=== PATIENT | male | born 1940 | race Caucasian/White ===

== ENCOUNTER → 2019-09-26 10:28 | Outpatient (CLI) | payer MEDICARE, SELFPAY ==
--- NOTE | 2019-09-26 10:33 | ECHOD_ITS ---
Reason For Study: Aortic stenosis Procedure This was a 2D Doppler, Color Flow transthoracic echocardiogram. Exam performed in department. Left Ventricle Normal LV size. The estimated ejection fraction is 70 %. Stage 2 diastolic dysfunction. No regional wall motion abnormalities noted. Right Ventricle Normal RV size. Normal systolic function. Atria The left atrium is mildly enlarged. Normal right atrium. No doppler evidence for ASD. Mitral Valve There is no mitral valve stenosis. Trivial mitral valve insufficiency. Tricuspid Valve There is no tricuspid stenosis. Mild tricuspid valve insufficiency. Pulmonary artery systolic pressure is 35 mmHg. Aortic Valve Trisinus/trileaflet aortic valve. Moderate diffuse aortic valve thickening. Moderate aortic stenosis. Mild (1+) aortic valve insufficiency. Pulmonic Valve There is no pulmonic valvular stenosis. Trivial pulmonic valve insufficiency. Great Vessels Normal aortic root. Pericardium/Pleural No pericardial effusion. MMode/2D Measurements & Calculations LVIDd: 3.8 cm IVSd: 1.3 cm LVOT diam: 2.1 cm LVIDs: 1.9 cm LVPWd: 1.2 cm LVOT area: 3.4 cm2 RVDd: 2.9 cm FS: 48.5 % Ao root diam: 3.9 cm LAV(MOD-bp): 60.8 ml LA A4 area: 21.8 cm2 LAV(MOD-bp) Indexed: 32.2 ml/m2 LAV(MOD-sp2): 52.9 ml LAV(MOD-sp4): 68.2 ml RA A4 area: 14.8 cm2 Doppler Measurements & Calculations MV E max rd: 69.1 cm/sec Lat Peak E' Rd: 5.8 cm/sec Med Peak E' Rd: 3.9 cm/sec MV A max rd: 94.8 cm/sec E/E' lat: 11.9 E/E' med: 17.5 MV E/A: 0.73 Ao V2 max: 376.8 cm/sec AI max rd: 344.8 cm/sec LV V1 max: 138.7 cm/sec Ao max P.8 mmHg AI max P.6 mmHg LV V1 max P.7 mmHg Ao V2 mean: 256.5 cm/sec AI dec slope: 148.9 cm/sec2 LV V1 mean P.1 mmHg Ao mean P.3 mmHg AI P1/2t: 678.5 msec LV V1 mean: 95.1 cm/sec Ao V2 VTI: 78.9 cm LV V1 VTI: 26.5 cm UMA(I,D): 1.2 cm2 UMA(V,D): 1.3 cm2 SV(LVOT): 90.8 ml PA V2 max: 102.9 cm/sec TR max rd: 292.5 cm/sec TR max P.3 mmHg Interpretation Summary The estimated ejection fraction is 70 %. Stage 2 diastolic dysfunction. Trivial mitral valve insufficiency. Mild tricuspid valve insufficiency. Pulmonary artery systolic pressure is 35 mmHg. Mild (1+) aortic valve insufficiency. Moderate aortic stenosis. Ordering Physician: Caden Avery Referring Physician: Caden Avery Performed By: Elizabeth Dacosta RDCS
== END ==
PROVIDERS: PCP Family Medicine; Referring Provider Family Medicine; Visit Provider Family Medicine
DX: I35.0 Nonrheumatic aortic (valve) stenosis (principal)
CPT/HCPCS: 93306

== ENCOUNTER → 2020-08-03 09:55 | Outpatient (CLI) | payer MEDICARE, SELFPAY ==
[2020-08-03 12:40] LABS: Hemoglobin A1c 6.2 % (3.8-5.6)
[2020-08-03 12:52] LABS: ALB/GLOB Ratio 0.8 RATIO (0.9-2.4); AST(SGOT) 17 U/L (15-37); Alanine Aminotransfer ALT/SGPT 25 U/L (16-61); Albumin, Serum 3.2 g/dL (3.2-5.0); Alkaline Phosphatase 88 U/L (45-117); Anion Gap 9 (5-15); BUN 23 mg/dL (7-18); BUN/Creat Ratio 16.4 RATIO (10-20); Chloride 104 mmol/L (98-107); Cholesterol 144 mg/dL (200); EST Glomerular Filtration Rate 52 mL/min (>60); Est Glom Filt Rate - Afr Amer 63 mL/min (>60); Globulin 4.1 g/dL (2.2-4.2); Glucose 158 mg/dL (74-106); High Density Lipoprotein 42 mg/dL; Potassium 3.4 mmol/L (3.5-5.1); Protein, Total 7.3 g/dL (6.4-8.2); Sodium Level 137 mmol/L (136-145); Triglycerides 153 mg/dL; Very Low Density Lipoprotein 31 mg/dL (5-40)
== END ==
PROVIDERS: PCP Family Medicine; Referring Provider Family Medicine; Visit Provider Family Medicine
DX: I10 Essential (primary) hypertension (principal); E11.65 Type 2 diabetes mellitus with hyperglycemia; E78.5 Hyperlipidemia, unspecified
CPT/HCPCS: 36415; 80053; 80061; 83036

== ENCOUNTER → 2021-07-18 10:27 | Outpatient (CLI) | payer MEDICARE, SELFPAY ==
[2021-07-18 12:41] LABS: ALB/GLOB Ratio 0.9 RATIO (0.9-2.4); AST(SGOT) 16 U/L (15-37); Alanine Aminotransfer ALT/SGPT 32 U/L (16-61); Albumin, Serum 3.5 g/dL (3.2-5.0); Alkaline Phosphatase 93 U/L (45-117); Anion Gap 9 (5-15); BUN 37 mg/dL (7-18); BUN/Creat Ratio 24.8 RATIO (10-20); Calcium,Total 9.9 mg/dL (8.5-10.1); Chloride 108 mmol/L (98-107); Cholesterol 128 mg/dL (200); Creatinine, Serum 1.49 mg/dL (0.70-1.30); EST Glomerular Filtration Rate 48 mL/min (>60); Est Glom Filt Rate - Afr Amer 58 mL/min (>60); Globulin 4.1 g/dL (2.2-4.2); Glucose 119 mg/dL (74-106); High Density Lipoprotein 43 mg/dL; Potassium 3.4 mmol/L (3.5-5.1); Protein, Total 7.6 g/dL (6.4-8.2); Sodium Level 142 mmol/L (136-145); Triglycerides 136 mg/dL; Very Low Density Lipoprotein 27 mg/dL (5-40)
== END ==
PROVIDERS: PCP Family Medicine; Referring Provider Family Medicine; Visit Provider Family Medicine
DX: E78.5 Hyperlipidemia, unspecified (principal); E11.65 Type 2 diabetes mellitus with hyperglycemia; I10 Essential (primary) hypertension
CPT/HCPCS: 36415; 80053; 80061; 83036

== ENCOUNTER → 2023-01-08 | Outpatient (REF) | payer MEDICARE, SELFPAY ==
[2023-01-09 06:54] LABS: Bacteria 0 SEEN /hpf (None Seen); Mucous, Urine 0 SEEN /hpf (<or=2+); Red Blood Cells-Urine 0 SEEN /hpf (0-5); Squamous Epithelial Cells - UA 0 SEEN /hpf (0-5); White Blood Cells 0 SEEN /hpf (0-5)
[2023-01-09 07:24] LABS: Color, Urine Yellow (Yellow); Glucose, Dipstick Normal (Normal); Ketone-Dipstick Negative (Negative); Leukocyte Esterase-Dipstick Negative /ul (Negative); Nitrite-Dipstick Negative (Negative); Occult Blood-Urine Negative /ul (Negative); Protein-Dipstick 15 mg/dl (Negative); Urine Bilirubin Dipstick Negative (Negative); Urine Clarity Clear (Clear); Urine Urobilinogen 1 mg/dl (Normal)
[2023-01-09 08:11] LABS: Calcium Oxalate Crystals Ur 1+ /hpf (<or=2+)
== END ==
LOC: OLS.SW 20:30
PROVIDERS: PCP Family Medicine; Visit Provider Family Medicine
DX: N18.4 Chronic kidney disease, stage 4 (severe) (principal); N39.0 Urinary tract infection, site not specified
CPT/HCPCS: 81001; 87086

== ENCOUNTER → 2023-01-17 05:00 | Outpatient (REF) | payer MEDICARE, SELFPAY ==
[2023-01-17 10:00] LABS: Anion Gap 6 (5-15); BUN 40 mg/dL (7-18); BUN/Creat Ratio 21.6 RATIO (10-20); Chloride 102 mmol/L (98-107); Creatinine, Serum 1.85 mg/dL (0.70-1.30); EST Glomerular Filtration Rate 37 mL/min (>60); Est Glom Filt Rate - Afr Amer 45 mL/min (>60); Glucose 134 mg/dL (74-106); Sodium Level 140 mmol/L (136-145)
== END ==
LOC: OLS.SW 05:00
PROVIDERS: PCP Family Medicine; Visit Provider Family Medicine
DX: I13.0 Hypertensive heart and chronic kidney disease with heart failure and stage 1 through stage 4 chronic kidney disease, or unspecified chronic kidney disease (principal); N18.4 Chronic kidney disease, stage 4 (severe)
CPT/HCPCS: 36415; 80048

== ENCOUNTER → 2023-01-24 | Outpatient (REF) | payer MEDICARE, SELFPAY ==
[2023-01-24 09:14] LABS: Anion Gap 4 (5-15); BUN 42 mg/dL (7-18); BUN/Creat Ratio 19.1 RATIO (10-20); Calcium,Total 8.9 mg/dL (8.5-10.1); Chloride 104 mmol/L (98-107); EST Glomerular Filtration Rate 31 mL/min (>60); Est Glom Filt Rate - Afr Amer 37 mL/min (>60); Glucose 151 mg/dL (74-106); Potassium 3.9 mmol/L (3.5-5.1); Sodium Level 142 mmol/L (136-145)
== END ==
LOC: OLS.SW 05:00
PROVIDERS: PCP Family Medicine; Visit Provider Family Medicine
DX: N18.4 Chronic kidney disease, stage 4 (severe) (principal)
CPT/HCPCS: 36415; 80048

== ENCOUNTER → 2023-02-01 | Outpatient (REF) | payer MEDICARE, SELFPAY ==
[2023-02-01 10:10] LABS: Anion Gap 2 (5-15); BUN 36 mg/dL (7-18); BUN/Creat Ratio 17.2 RATIO (10-20); Calcium,Total 8.5 mg/dL (8.5-10.1); Chloride 106 mmol/L (98-107); Creatinine, Serum 2.09 mg/dL (0.70-1.30); EST Glomerular Filtration Rate 33 mL/min (>60); Est Glom Filt Rate - Afr Amer 39 mL/min (>60); Glucose 150 mg/dL (74-106); Potassium 3.8 mmol/L (3.5-5.1); Sodium Level 142 mmol/L (136-145)
== END ==
LOC: OLS.SW 05:00
PROVIDERS: PCP Family Medicine; Visit Provider Family Medicine
DX: N18.4 Chronic kidney disease, stage 4 (severe) (principal)
CPT/HCPCS: 36415; 80048

== ENCOUNTER → 2023-02-08 | Outpatient (REF) | payer MEDICARE, SELFPAY ==
[2023-02-08 10:20] LABS: Anion Gap 5 (5-15); BUN 41 mg/dL (7-18); BUN/Creat Ratio 17.3 RATIO (10-20); Calcium,Total 8.8 mg/dL (8.5-10.1); Chloride 101 mmol/L (98-107); Creatinine, Serum 2.37 mg/dL (0.70-1.30); EST Glomerular Filtration Rate 28 mL/min (>60); Est Glom Filt Rate - Afr Amer 34 mL/min (>60); Glucose 165 mg/dL (74-106); Potassium 4.2 mmol/L (3.5-5.1); Sodium Level 139 mmol/L (136-145)
== END ==
LOC: OLS.SW 05:00
PROVIDERS: PCP Family Medicine; Visit Provider Family Medicine
DX: N18.4 Chronic kidney disease, stage 4 (severe) (principal); D63.1 Anemia in chronic kidney disease; J96.01 Acute respiratory failure with hypoxia
CPT/HCPCS: 36415; 80048

== ENCOUNTER → 2023-02-15 | Outpatient (REF) | payer MEDICARE, SELFPAY ==
[2023-02-15 10:09] LABS: Anion Gap 5 (5-15); BUN 46 mg/dL (7-18); BUN/Creat Ratio 22.1 RATIO (10-20); Calcium,Total 8.9 mg/dL (8.5-10.1); Chloride 105 mmol/L (98-107); Creatinine, Serum 2.08 mg/dL (0.70-1.30); EST Glomerular Filtration Rate 33 mL/min (>60); Est Glom Filt Rate - Afr Amer 40 mL/min (>60); Glucose 168 mg/dL (74-106); Potassium 3.9 mmol/L (3.5-5.1); Sodium Level 141 mmol/L (136-145)
== END ==
LOC: OLS.SW 05:00
PROVIDERS: PCP Family Medicine; Visit Provider Family Medicine
DX: I50.9 Heart failure, unspecified (principal); N18.9 Chronic kidney disease, unspecified
CPT/HCPCS: 36415; 80048

== ENCOUNTER → 2023-02-22 | Outpatient (REF) | payer MEDICARE, SELFPAY ==
[2023-02-22 10:12] LABS: Anion Gap 6 (5-15); BUN 43 mg/dL (7-18); BUN/Creat Ratio 19.7 RATIO (10-20); Chloride 102 mmol/L (98-107); Creatinine, Serum 2.18 mg/dL (0.70-1.30); EST Glomerular Filtration Rate 31 mL/min (>60); Est Glom Filt Rate - Afr Amer 38 mL/min (>60); Glucose 172 mg/dL (74-106); Sodium Level 140 mmol/L (136-145)
== END ==
LOC: OLS.SW 05:00
PROVIDERS: PCP Family Medicine; Visit Provider Family Medicine
DX: R53.83 Other fatigue (principal)
CPT/HCPCS: 36415; 80048

== ENCOUNTER → 2023-02-23 | Outpatient (CLI) | payer MEDICARE, SELFPAY ==
--- NOTE | 2023-02-23 15:53 | VDUE_ITS ---
Reason For Study: Pre op Right Lower Arm Left Arm Lateral Radial vein proximal diameter 1.1 x Lateral Brachial vein diameter 3.9 x 3.7 mm. 1.1 mm. Medial Brachial vein diameter 3.9 x 4.1 mm. Medial Radial vein proximal diameter 1.5 x Brachial artery measures 4.6 x 4.2 mm. 1.9 mm. Brachial artery waveforms are Triphasic. Proximal Radial artery measures 1.9 x 1.5 Welding Operator Vein is present. mm. Welding Operator Vein measures 2.0 mm. Proxiaml Radial artery waveform is Cephalic Vein at proximal upper arm measures Triphasic. 2.8 x 2.7 mm. Lateral Radial vein distal diameter 0.7 x Cephalic vein at proximal upper arm depth 0.7 mm. measures 3.0 mm. Medial Radial vein distal diameter 0.8 x 0.9 Cephalic Vein at mid upper arm measures 2.7 mm. x 2.8 mm. Distal Radial artery measures 2.0 x 1.9 mm. Cephalic vein at mid upper arm depth Lateral Ulnar vein proximal diameter 3.0 x measures 2.2 mm. 2.9 mm. Cephalic Vein distal upper arm measures 2.3 Medial Ulnar vein proximal diameter 4.8 x x 2.5 mm. 4.5 mm. Cephalic vein at distal upper arm depth Proximal Ulnar artery measures 3.7 x 3.9 mm. measures 2.8 mm. Proximal Ulnar artery waveform is Triphasic. Cephalic Vein proximal forearm measures 1.6 Lateral Ulnar vein distal diameter 1.5 x 1.6 x 1.8 mm. mm. Cephalic Vein at mid forearm measures 1.9 x Medial Ulnar vein distal diameter 0.9 x 0.8 2.0 mm. mm. Cephalic Vein at distal forearm measures 2.2 Distal Ulnar artery measures 2.6 x 3.0 mm. x 2.3 mm. Right Arm Proximal Basilic vein measures 3.1 x 3.2 mm. Lateral Brachial vein diameter 3.5 x 3.3 mm. Proximal Basilic vein depth measures 7.7 mm. Medial Brachial vein diameter 7.1 x 6.9 mm. Mid Basilic vein measures 3.4 x 3.4 mm. Brachial artery measures 5.7 x 6.0 mm. Mid Basilic vein depth measures 5.8 mm. Brachial artery waveforms are Triphasic. Distal Basilic vein measures 2.9 x 3.0 mm. Welding Operator Vein is present. Distal Basilic vein depth measures 4.1 mm. Welding Operator Vein measures 2.6 mm. Left Lower Arm Cephalic Vein at proximal upper arm measures Lateral Radial vein proximal diameter 1.1 x 4.0 x 4.2 mm. 1.0 mm. Cephalic vein at proximal upper arm depth Medial Radial vein proximal diameter 0.9 x measures 3.6 mm. 0.9 mm. Cephalic Vein at mid upper arm measures 3.9 Proximal Radial artery measures 2.2 x 2.2 x 4.0 mm. mm. Cephalic vein at mid upper arm depth Proxiaml Radial artery waveform is measures 1.3 mm. Triphasic. Cephalic Vein distal upper arm measures 2.6 Lateral Radial vein distal diameter 0.6 x x 2.8 mm. 0.7 mm. Cephalic vein at distal upper arm depth Medial Radial vein distal diameter 0.8 x 0.7 measures 1.6 mm. mm. Cephalic Vein proximal forearm measures 1.8 Distal Radial artery measures 2.2 x 2.6 mm. x 2.1 mm. Lateral Ulnar vein proximal diameter 2.3 x Cephalic Vein at mid forearm measures 2.0 x 2.2 mm. 2.1 mm. Medial Ulnar vein proximal diameter 2.8 x Cephalic Vein at distal forearm measures 1.9 2.9 mm. x 1.8 mm. Proximal Ulnar artery measures 3.6 x 3.9 mm. Proximal Basilic vein measures 4.2 x 4.1 mm. Proximal Ulnar artery waveform is Triphasic. Proximal Basilic vein depth measures 4.6 mm. Lateral Ulnar vein distal diameter 1.0 x 0.9 Mid Basilic vein measures 4.1 x 4.1 mm. mm. Mid Basilic vein depth measures 3.9 mm. Medial Ulnar vein distal diameter 1.1 x 1.1 Distal Basilic vein measures 4.0 x 4.1 mm. mm. Distal Basilic vein depth measures 1.8 mm. Distal Ulnar artery measures 1.9 x 1.9 mm. VL/Dialysis Vein Map PRE-OP BILAT Interpretation Summary Right upper extremity arterial system patent with normal waveforms and measurem ents above. Left upper extremity arterial system patent with normal waveforms and measureme nts above. Right upper extremity patent with measurements above Left upper extremity patent with measurements above Ordering Physician: Noble Zepeda MD Referring Physician: Caden Avery Performed By: Afia Tinsley Katty ???
== END | disposition home or self-care (01) ==
PROVIDERS: PCP Family Medicine; Referring Provider Surgery Trauma Surgery; Visit Provider Surgery Trauma Surgery
DX: Z01.810 Encounter for preprocedural cardiovascular examination (principal); Z99.2 Dependence on renal dialysis
CPT/HCPCS: 93985

== ENCOUNTER → 2023-03-01 | Outpatient (REF) | payer MEDICARE, SELFPAY ==
[2023-03-01 11:01] LABS: Anion Gap 5 (5-15); BUN 43 mg/dL (7-18); BUN/Creat Ratio 21.9 RATIO (10-20); Calcium,Total 8.8 mg/dL (8.5-10.1); Chloride 105 mmol/L (98-107); Creatinine, Serum 1.96 mg/dL (0.70-1.30); EST Glomerular Filtration Rate 35 mL/min (>60); Est Glom Filt Rate - Afr Amer 42 mL/min (>60); Glucose 150 mg/dL (74-106); Potassium 3.8 mmol/L (3.5-5.1); Sodium Level 142 mmol/L (136-145)
== END ==
LOC: OLS.SW 07:15
PROVIDERS: PCP Family Medicine; Visit Provider Family Medicine
DX: I10 Essential (primary) hypertension (principal)
CPT/HCPCS: 36415; 80048

== ENCOUNTER → 2023-03-08 | Outpatient (REF) | payer MEDICARE, SELFPAY ==
[2023-03-08 09:53] LABS: Anion Gap 7 (5-15); BUN 47 mg/dL (7-18); Calcium,Total 8.9 mg/dL (8.5-10.1); Chloride 101 mmol/L (98-107); Creatinine, Serum 2.14 mg/dL (0.70-1.30); EST Glomerular Filtration Rate 32 mL/min (>60); Est Glom Filt Rate - Afr Amer 38 mL/min (>60); Glucose 164 mg/dL (74-106); Potassium 3.7 mmol/L (3.5-5.1); Sodium Level 139 mmol/L (136-145)
== END ==
LOC: OLS.SW 04:00
PROVIDERS: PCP Family Medicine; Referring Provider Family Medicine; Visit Provider Family Medicine
DX: N17.9 Acute kidney failure, unspecified (principal); N18.9 Chronic kidney disease, unspecified
CPT/HCPCS: 36415; 80048

== ENCOUNTER → 2023-03-15 | Outpatient (REF) | payer MEDICARE, MEDICAID, SELFPAY ==
[2023-03-15 09:27] LABS: Anion Gap 5 (5-15); BUN 46 mg/dL (7-18); BUN/Creat Ratio 16.6 RATIO (10-20); Calcium,Total 8.9 mg/dL (8.5-10.1); Chloride 100 mmol/L (98-107); Creatinine, Serum 2.77 mg/dL (0.70-1.30); EST Glomerular Filtration Rate 24 mL/min (>60); Est Glom Filt Rate - Afr Amer 28 mL/min (>60); Glucose 178 mg/dL (74-106); Potassium 3.9 mmol/L (3.5-5.1); Sodium Level 138 mmol/L (136-145)
== END ==
LOC: OLS.SW 05:00
PROVIDERS: PCP Family Medicine; Visit Provider Family Medicine
DX: D64.9 Anemia, unspecified (principal); I10 Essential (primary) hypertension
CPT/HCPCS: 36415; 80048

== ENCOUNTER → 2023-03-19 | Outpatient (REF) | payer MEDICARE, SELFPAY ==
[2023-03-19 11:38] LABS: Hemoglobin A1c 6.5 % (3.8-5.6)
== END ==
LOC: OLS.SW 05:00
PROVIDERS: PCP Family Medicine; Visit Provider Internal Medicine
DX: E11.9 Type 2 diabetes mellitus without complications (principal)
CPT/HCPCS: 36415; 83036

== ENCOUNTER → 2023-03-22 | Outpatient (REF) | payer MEDICARE, SELFPAY ==
[2023-03-22 09:29] LABS: Anion Gap 7 (5-15); BUN 37 mg/dL (7-18); BUN/Creat Ratio 17.9 RATIO (10-20); Calcium,Total 9.1 mg/dL (8.5-10.1); Chloride 102 mmol/L (98-107); Creatinine, Serum 2.07 mg/dL (0.70-1.30); EST Glomerular Filtration Rate 33 mL/min (>60); Est Glom Filt Rate - Afr Amer 40 mL/min (>60); Glucose 196 mg/dL (74-106); Potassium 3.8 mmol/L (3.5-5.1); Sodium Level 140 mmol/L (136-145)
== END ==
LOC: OLS.SW 05:00
PROVIDERS: PCP Family Medicine; Visit Provider Family Medicine
DX: I50.33 Acute on chronic diastolic (congestive) heart failure (principal); J96.01 Acute respiratory failure with hypoxia
CPT/HCPCS: 36415; 80048

== ENCOUNTER → 2023-03-29 | Outpatient (REF) | payer MEDICARE, SELFPAY ==
[2023-03-29 09:46] LABS: Anion Gap 5 (5-15); BUN 40 mg/dL (7-18); BUN/Creat Ratio 19.2 RATIO (10-20); Calcium,Total 8.9 mg/dL (8.5-10.1); Chloride 100 mmol/L (98-107); Creatinine, Serum 2.08 mg/dL (0.70-1.30); EST Glomerular Filtration Rate 33 mL/min (>60); Est Glom Filt Rate - Afr Amer 40 mL/min (>60); Glucose 193 mg/dL (74-106); Potassium 3.5 mmol/L (3.5-5.1); Sodium Level 138 mmol/L (136-145)
== END ==
LOC: OLS.SW 05:00
PROVIDERS: PCP Family Medicine; Referring Provider Family Medicine; Visit Provider Family Medicine
DX: Z99.2 Dependence on renal dialysis (principal)
CPT/HCPCS: 36415; 80048

== ENCOUNTER → 2023-04-12 | Outpatient (REF) | payer MEDICARE, SELFPAY ==
[2023-04-12 09:46] LABS: Anion Gap 5 (5-15); BUN 38 mg/dL (7-18); BUN/Creat Ratio 17.9 RATIO (10-20); Calcium,Total 8.7 mg/dL (8.5-10.1); Chloride 102 mmol/L (98-107); Creatinine, Serum 2.12 mg/dL (0.70-1.30); EST Glomerular Filtration Rate 32 mL/min (>60); Est Glom Filt Rate - Afr Amer 39 mL/min (>60); Glucose 230 mg/dL (74-106); Potassium 3.7 mmol/L (3.5-5.1); Sodium Level 140 mmol/L (136-145)
== END ==
LOC: OLS.SW 05:00
PROVIDERS: PCP Family Medicine; Visit Provider Family Medicine
DX: N18.4 Chronic kidney disease, stage 4 (severe) (principal)
CPT/HCPCS: 36415; 80048

== ENCOUNTER → 2023-04-17 | Outpatient (REF) | payer MEDICARE, MEDICAID, SELFPAY ==
[2023-04-17 08:30] LABS: Absolute Lymphocyte Count 1.51 X10^3/uL (0.83-4.51); Absolute Neutrophil Count 7.7 X10^3/uL (2.0-7.7); Basophil# 0.12 X10^3/uL; Eosinophil# 1.56 X10^3/uL; Eosinophils% 12.8 % (0-5); Hematocrit 24.9 % (40-54); Hemoglobin 7.1 g/dL (13.0-16.5); Lymphocyte # 1.51 X10^3/ul (0.83-4.51); Lymphocyte % 12.4 % (19-41); Mean Corp Hgb Conc 28.5 g/dL (32-36); Mean Corpuscular Hgb 26.2 pg (27.0-32.0); Mean Corpuscular Volume 91.9 fL (80-94); Mean Platelet Vol. 9.4 fl (6.2-12.0); Monocyte# 1.11 X10^3/uL; Monocyte% 9.1 % (0-10); NRBC Flagged by Analyzer 0 % (0-5); Neutrophil # 7.71 X10^3/uL (2.7-7.7); Neutrophil % 63.5 % (47-70); Platelet Count 500 K/mm3 (150-450); RBC Distribution Width SD 55.8 fl (35.1-43.9); Red Blood Count 2.71 M/mm3 (4.6-6.2); White Blood Count 12.2 K/mm3 (4.4-11.0)
[2023-04-17 08:40] LABS: Anion Gap 3 (5-15); BUN 33 mg/dL (7-18); Calcium,Total 8.6 mg/dL (8.5-10.1); Chloride 102 mmol/L (98-107); Creatinine, Serum 1.94 mg/dL (0.70-1.30); EST Glomerular Filtration Rate 35 mL/min (>60); Est Glom Filt Rate - Afr Amer 43 mL/min (>60); Glucose 214 mg/dL (74-106); Potassium 3.6 mmol/L (3.5-5.1); Sodium Level 138 mmol/L (136-145)
== END ==
LOC: OLS.SW 05:00
PROVIDERS: PCP Family Medicine; Visit Provider Family Medicine
DX: Z01.818 Encounter for other preprocedural examination (principal)
CPT/HCPCS: 36415; 80048; 85025

== ENCOUNTER → 2023-04-18 | Outpatient (REF) | payer MEDICARE, SELFPAY ==
[2023-04-18 09:42] LABS: T4 Total, Thyroxin 13.7 ug/dL (4.5-12.1)
== END ==
LOC: OLS.SW 05:00
PROVIDERS: PCP Family Medicine; Visit Provider Family Medicine
DX: E03.9 Hypothyroidism, unspecified (principal)
CPT/HCPCS: 36415; 84436; 84443

== ENCOUNTER 2023-04-24 05:25 | Day surgery (SDC) | payer MEDICARE, SELFPAY ==
[2023-04-24] VITALS (12 sets, daily range): BP systolic 103–144; BP diastolic 36–56; PULSE 59–61; RESP 16–18; TEMP 36.4–36.8; O2SAT 93–99; BMI 25.4
[2023-04-24 06:21] LABS: Absolute Lymphocyte Count 1.22 X10^3/uL (0.83-4.51); Absolute Neutrophil Count 8.2 X10^3/uL (2.0-7.7); Basophil# 0.11 X10^3/uL; Basophil% 0.9 % (0-1); Hematocrit 26.6 % (40-54); Hemoglobin 7.7 g/dL (13.0-16.5); Lymphocyte # 1.22 X10^3/ul (0.83-4.51); Lymphocyte % 10.1 % (19-41); Mean Corp Hgb Conc 28.9 g/dL (32-36); Mean Corpuscular Hgb 26.2 pg (27.0-32.0); Mean Corpuscular Volume 90.5 fL (80-94); Mean Platelet Vol. 9.8 fl (6.2-12.0); Monocyte# 1.22 X10^3/uL; Monocyte% 10.1 % (0-10); NRBC Flagged by Analyzer 0 % (0-5); Neutrophil # 8.16 X10^3/uL (2.7-7.7); Platelet Count 418 K/mm3 (150-450); RBC Distribution Width CV 17.2 % (11.6-14.6); RBC Distribution Width SD 56.5 fl (35.1-43.9); Red Blood Count 2.94 M/mm3 (4.6-6.2)
[2023-04-24] MEDS: 0.9% Normal Saline (500mL Bag) 500 ML 15 ML IV (06:23)
[2023-04-24 06:43] LABS: Bedside Glucose 208 mg/dL (74-106)
[2023-04-24] MEDS: Amiodarone 200 MG Tablet PO (07:11)
--- NOTE | 2023-04-24 07:29 | HP.PCM_ITS ---
HPI - General HPI Narrative FRANCIA HERRERA, is a 82 M who presents for dialysis access creation. Currently HD via left IJ catheter. Prior left side pacer. Has had vein mapping that reveals adequate right cephalic vein and appropriate anatomy suitable for percutaneous creation. HD on MWF. Hx of afib on eliquis, last dose 04/22 PFSH Medical History Anemia Arthritis Cardiology follow-up encounter CHF (congestive heart failure) CKD (chronic kidney disease), stage IV Dependence on renal dialysis Diabetes Dietary restriction Difficulty chewing Excessive bleeding Heartburn History of atrial fibrillation History of edema Hx of valvular heart disease Hyperlipemia Hypoxia Lives in assisted Loss of hearing Muscle weakness (generalized) Non-smoker On home oxygen therapy Pacemaker Rheumatic mitral insufficiency Shortness of breath on exertion Syncope Thyroid disease Uses wheelchair Wears dentures Wears glasses Home Medications acetaminophen 325 mg capsule 650 mg PO Q4H PRN fever or pain 02/13/23 [History Last Taken Unknown] amiodarone 200 mg tablet 200 mg PO DAILY 02/13/23 [History Last Taken 04/23/23] apixaban 2.5 mg tablet (Eliquis) 2.5 mg PO Q12H 02/13/23 [History Last Taken 04/22/23] aspirin 81 mg chewable tablet 1 tab PO DAILY 02/13/23 [History Last Taken 04/23/23] atorvastatin 10 mg tablet 10 mg PO QHS 02/13/23 [History Last Taken Unknown] azelastine 137 mcg (0.1 %) nasal spray aerosol 2 spray intranasal Q12H PRN ALLERGIES 02/13/23 [History Last Taken Unknown] bumetanide 1 mg tablet 2 mg PO DAILY 02/13/23 [History Last Taken Unknown] fluticasone propionate 50 mcg/actuation nasal spray,suspension 2 spray intranasal Q12H PRN nasal congestion 02/13/23 [History Last Taken Unknown] levothyroxine 75 mcg tablet 88 mcg PO DAILY 02/13/23 [History Last Taken 2 3] magnesium oxide 400 mg (241.3 mg magnesium) tablet 400 mg PO DAILY 02/13/23 [History Last Taken Unknown] midodrine 10 mg tablet 10 mg PO BID 02/13/23 [History Last Taken 04/24/23] ondansetron 4 mg disintegrating tablet 4 mg PO Q6H PRN nausea and vomiting 02/13/23 [History Last Taken Unknown] vitamin B complex-vitamin C-folic acid 0.8 mg tablet (Renal Vitamin) 1 tab PO DAILY 02/13/23 [History Last Taken Unknown] Allergy/AdvReac Type Severity Reaction Status Date / Time No Known Allergies Allergy Verified 04/23/23 13:32 Social History Smoking Status: Never smoker ROS Constitutional Constitutional: Denies chills, fever(s), frequent falls, lethargy or weakness Eyes Eyes: Denies blind spots, change in vision or loss of vision ENT HEENT: Denies bleeding gums, hoarseness or sore throat Cardiovascular Cardiovascular: Denies abdominal pain, bluish discoloration of hand/feet, chest pain with activity, claudication, cold extremities, cyanosis, dyspnea on exertion, erythema on extremities, irregular heart rhythm, leg edema, leg ulcers, numbness in extremities or weakness in extremities Respiratory/Chest Respiratory/Chest: Denies cough, excessive phlegm production, shortness of breath at rest, shortness of breath with exertion or wheezing Gastrointestinal Gastrointestinal: Denies anorexia, change in stool character, constipation, diarrhea, melena or rectal bleeding Genitourinary Genitourinary: Denies dysuria or hematuria Musculoskeletal Musculoskeletal: Denies abnormal gait Integumentary Integumentary: Reports other Details: ; Denies erythema, non-healing lesions or wounds Neurologic Neurologic: Denies abnormal speech, focal weakness, headache(s), loss of vision, numbness, paresthesias or sensory deficit Hematologic/Lymphatic Hematologic/Lymphatic: Denies easy bleeding, easy bruising or lymphadenopathy Vital Signs Vital Signs Vital Signs: 04/24/23 06:24 04/24/23 06:24 Temperature 97.6 F L Temperature Source Oral Pulse Rate 60 Respiratory Rate 18 Respiratory Pattern Normal Blood Pressure 144/56 H Blood Pressure Mean 85 Blood Pressure Source Monitor Blood Pressure Position Semi-Fowlers Blood Pressure Location Left Arm Pulse Ox 99 Oxygen Delivery Method Nasal Cannula Oxygen Flow Rate (L/min) 2 Weight Weight: 153 lb Body Mass Index (BMI) 25.4 Physical Exam Const alert, oriented x3, no apparent distress and healthy appearing General Appearance: cooperative; Negative for combative or lethargic Orientation / Consciousness: awake Exam Limitations: no limitations HEENT Head and Scalp: normocephalic and atraumatic Eyes EOMs intact bilaterally General Eye: normal appearance of both eyes Neck full ROM, no lymphadenopathy and thyroid normal General: trachea midline; Negative for lymphadenopathy or tenderness Thyroid: thyroid normal Lymph Lymphatic: Negative for no lymphadenopathy noted Resp normal respiratory effort and no use of accessory muscles Effort and Inspection: Negative for labored, stridor or audible wheezes Cardio regular rate and regular rhythm Peripheral Pulses: brachial pulses present and radial pulses present Back/Spine Cervical Spine: cervical ROM normal Extremity full ROM, normal capillary refill and no clubbing, cyanosis or edema Skin no rashes or lesions noted and no wounds Neuro oriented x3, CN's II-XII intact bilaterally, no focal motor deficits and no sensory deficits noted Psych thought process normal, cooperative, affect normal, speech normal and activity/motor behavior normal Results Lab / Micro Data 04/24/23 06:15 Labs: Laboratory Results - last 24 hr 04/24/23 05:57: POC Glucose 208 H 04/24/23 06:15: WBC 12.0 H, RBC 2.94 L, Hgb 7.7 L, Hct 26.6 L, MCV 90.5, MCH 26.2 L, MCHC 28.9 L, RDW Std Deviation 56.5 H, RDW Coeff of Lon 17.2 H, Plt Count 418, MPV 9.8, Immature Gran % (Auto) 0.900, Neut % (Auto) 68.0, Lymph % (Auto) 10.1 L, [place] % (Auto) 10.1 H, Eos % (Auto) 10.0 H, Baso % (Auto) 0.9, Absolute Neuts (auto) 8.2 H, Absolute Lymphs (auto) 1.22, Nucleated RBC % 0, Blood Type O POSITIVE, Antibody Screen NEGATIVE Assessment & Plan Assessment/Plan (1) ESRD (end stage renal disease) on dialysis: PLAN: -plan right endovascular fistula creation
--- NOTE | 2023-04-24 11:34 | EX.PCM.DISCH ---
Discharge Instructions Diet Discharge Diet: No restrictions Activity Discharge Activity: Return to Normal Activity Lifting Restrictions: do not lift >20 lbs with right arm x 2 weeks Dressing / Incision Call your doctor if your incision/area has: Sudden Increased Bleeding and Increased Pain/ Swelling Remove Dressing in: 1 day Cleanse incision/area with: Soap & Water Follow Up Care Test Results: Test results from this visit will be discussed in further detail at your follow-up appointment, if applicable. Discharge Plan Admission Attending Provider: Noble Zepeda Primary Care Provider: Caden Avery Discharge Orders/Prescriptions Prescriptions: Continued acetaminophen 325 mg capsule 650 mg PO Q4H PRN (Reason: fever or pain) Rx Instructions: for pain amiodarone 200 mg tablet 200 mg PO DAILY aspirin 81 mg tablet,chewable 1 tab PO DAILY Patient Comments: TAKE 1 TABLET BY MOUTH DAILY atorvastatin 10 mg tablet 10 mg PO QHS azelastine 137 mcg (0.1 %) aerosol,spray 2 spray intranasal Q12H PRN (Reason: ALLERGIES) bumetanide 1 mg tablet 2 mg PO DAILY fluticasone propionate 50 mcg/actuation spray,suspension 2 spray intranasal Q12H PRN (Reason: nasal congestion) levothyroxine 75 mcg tablet 88 mcg PO DAILY magnesium oxide 400 mg (241.3 mg magnesium) tablet 400 mg PO DAILY Patient Comments: TAKE 1 TABLET BY MOUTH TWICE A DAY midodrine 10 mg tablet 10 mg PO BID Rx Instructions: give for hypotention, hold for SBP>90 or Diastolic >60 ondansetron 4 mg tablet,disintegrating 4 mg PO Q6H PRN (Reason: nausea and vomiting) Renal Vitamin 0.8 mg tablet 1 tab PO DAILY Held Eliquis 2.5 mg tablet 2.5 mg PO Q12H Hold Instructions: Resume on 04/26/23. Referrals / Follow Up: Caden Avery MD [Primary Care Provider] - Disposition Disposition (needs filled in before D/C Order can be placed): Nursing Home Facility
--- NOTE | 2023-04-24 11:41 | PCM.OPRPT ---
Report of Operation Date of Procedure: 04/24/23 Pre-Operative Diagnosis: ESRD Post-Operative Diagnosis: Same Surgery/Procedure Performed:: Percutaneous creation arteriovenous fistula Coil embolization brachial vein Description of Surgical Findings:: +thrill Surgeon: Noble Zepeda Type of Anesthesia: Local MAC Estimated Blood Loss (mL): 11 Description of Procedure: HPI: Patient is an 82-year-old male with end-stage renal disease currently on dialysis. He is a previous left-sided pacemaker and received dialysis via left IJ catheter. He had vein mapping which revealed satisfactory anatomy for endovascular fistula creation. Who presents now for elective fistula creation. Description of procedure: Upon obtaining informed consent and verification correct patient procedure site patient taken to the [employer] Aide he was positioned prepped and draped in usual fashion. Sedation was then administered by anesthesia and also was used to evaluate the arteries and veins of the right upper extremity. Previous mapping and initial ultrasound suggested that the ulnar veins in the wrist would be satisfactory access targets and it appeared that the lateral ulnar vein and its confluence into the brachial vein would be the ultimate fistula creation site. Under also guidance these micropuncture needle wire efforts were made to access the lateral ulnar vein in the distal forearm. The vein was satisfactory in size and we appeared to enter without difficulty we are unable to get the wire to pass in multiple view with ultrasound suggested that we had exited out the back wall of the vessel and will unable to reenter. We then made multiple other efforts to access the lateral ulnar vein more distally in the forearm as well as the medial ulnar vein none of which were successful. Patient had satisfactory sized brachial vein so skin overlying the mid upper arm brachial vein was anesthetized and ultrasound was used to access the vessel in antegrade fashion with a micropuncture needle wire. This was then exchanged out for micropuncture sheath through which hand-injection venogram was performed revealing satisfactory positioning with no contrast beyond the first valve. We then used a V18 wire to navigate across the valves and the brachial vein system and ultimately navigated into the ulnar vein. The micropuncture sheath was exchanged out for first a KMP catheter then advanced the catheter in order to navigate the ulnar vein and its branches more successfully. Ultimately were able to enter into the lateral ulnar vein position in the interosseous vein. The catheter was then withdrawn and exchanged for a 4 [place] halo sheath. The catheter was then readvanced over the wire and hand-injection venogram performed confirming placement within the interosseous vein without flow into the deep and superficial systems. Next under ultrasound guidance the ulnar artery was accessed in the distal forearm with micropuncture needle wire in retrograde fashion then exchanged for micropuncture sheath. Through the injection arteriogram was performed confirming proximity of the ulnar artery to the lateral ulnar vein and satisfactory positioning of the wires in relation to each other. Ultrasound then used to [place] the location of the senior staff specialized employment vein in relation to the ulnar artery and vein target site. The Appurifyinq percutaneous fistula creation device was then brought in field prep for auto tire recapper instructions. The appropriate arterial and venous catheters and advanced via each of the access sheaths and aligned and positioned at the target creation site. Once there was satisfactory alignment confirmed with catheter interaction and obliquities the wires were withdrawn and the device was then activated for 1 cycle. The devices were then withdrawn and hand-injection via the arterial sheath confirmed satisfactory fistula creation intended target site of the lateral ulnar vein and the ulnar artery. There was satisfactory transit of contrast across the senior staff specialized employment and into the cephalic vein which is the dominant outflow. There is also significant filling of the deep system with a very generous sized repair of brachial veins with multiple cross connections. The lantern catheter for the penumbra embolization coil was then advanced through the catheter and positioned in the final segment dual brachial vein system just above the fistula creation. An 8 mm coil was then advanced into the vein and deployed with satisfactory positioning. A second packing coil 15 mm was then packed cephalad to the initial coil. Repeat injection from the arterial sheath confirmed slowed outflow via the deep system and further shunting into the superficial system. It was felt that no further intervention was required so the catheters were withdrawn. A radial band compression device was then placed over the ulnar access and the sheath withdrawn. The brachial vein venous sheath was withdrawn and manual pressure held for 5 minutes after which satisfactory stasis was noted. Patient was then awakened from his sedation taken recovery in anticipated discharge home.
--- NOTE | 2023-04-24 13:18 | SUR.PHASEI ---
AT 1315 2CC AIR REMOVED FROM PRESSURE DRESSING PER DR SO'S ORDERS
--- NOTE | 2023-04-24 13:33 | SUR.PHASEI ---
1330 2CC AIR REMOVED FROM RT WRIST PRESSURE DRSG PER DR SO'S ORDERS
--- NOTE | 2023-04-24 13:42 | SUR.PHASEI ---
this nurse released 2cc every 15 min from the arterior pressure dressing starting at 1220, the dressing came off at 1340 with no bleeding or swelling, pulse is palpable
== END 2023-04-24 14:32 | disposition skilled nursing facility (03) ==
LOC: SDC 05:27 → AC 05:28
PROVIDERS: Anesthesiology; PCP Family Medicine; Referring Provider Surgery Trauma Surgery; Visit Provider Surgery Trauma Surgery
DX: E11.22 Type 2 diabetes mellitus with diabetic chronic kidney disease (principal); Z99.2 Dependence on renal dialysis; I50.9 Heart failure, unspecified; N18.6 End stage renal disease; I48.91 Unspecified atrial fibrillation; E78.5 Hyperlipidemia, unspecified; E07.9 Disorder of thyroid, unspecified; Z79.82 Long term (current) use of aspirin; Z79.899 Other long term (current) drug therapy; Z79.01 Long term (current) use of anticoagulants; Z99.81 Dependence on supplemental oxygen; Z95.0 Presence of cardiac pacemaker
CPT/HCPCS: 01844; 36837; 37241; 82962; 85025; 86850; 86900; 86901; C1757; C1769; C1887; C1889; J7040; J7120; Q9967; J2405

== ENCOUNTER → 2023-04-26 | Outpatient (REF) | payer MEDICARE, MEDICAID, SELFPAY ==
[2023-04-26 10:06] LABS: Anion Gap 4 (5-15); BUN 36 mg/dL (7-18); BUN/Creat Ratio 15.4 RATIO (10-20); Chloride 103 mmol/L (98-107); Creatinine, Serum 2.34 mg/dL (0.70-1.30); EST Glomerular Filtration Rate 29 mL/min (>60); Est Glom Filt Rate - Afr Amer 35 mL/min (>60); Glucose 203 mg/dL (74-106); Sodium Level 140 mmol/L (136-145)
== END ==
LOC: OLS.SW 08:10
PROVIDERS: PCP Family Medicine; Visit Provider Family Medicine
DX: N18.4 Chronic kidney disease, stage 4 (severe) (principal)
CPT/HCPCS: 36415; 80048

== ENCOUNTER → 2023-05-03 | Outpatient (REF) | payer MEDICARE, SELFPAY ==
[2023-05-03 09:15] LABS: Anion Gap 4 (5-15); BUN 40 mg/dL (7-18); BUN/Creat Ratio 14.8 RATIO (10-20); Calcium,Total 8.7 mg/dL (8.5-10.1); Chloride 101 mmol/L (98-107); EST Glomerular Filtration Rate 24 mL/min (>60); Est Glom Filt Rate - Afr Amer 29 mL/min (>60); Glucose 178 mg/dL (74-106); Sodium Level 139 mmol/L (136-145)
== END ==
LOC: OLS.SW 05:00
PROVIDERS: PCP Family Medicine; Visit Provider Family Medicine
DX: N18.4 Chronic kidney disease, stage 4 (severe) (principal)
CPT/HCPCS: 36415; 80048

== ENCOUNTER → 2023-05-15 | Outpatient (CLI) | payer MEDICARE, SELFPAY ==
--- NOTE | 2023-05-15 10:38 | AVDS_ITS ---
Reason For Study: ESRD RIGHT Brachial artery, mid, 264.7 cm/sec. Brachial artery, mid, 1538 ml/min. Medial Brachial vein, 149/64.2 cm/sec. Medial Brachial vein, 922 ml/min. Lateral Brachial vein, 122/29.5 cm/sec. Lateral Brachial vein, 420.7 ml/min. Cephalic vein, mid bicep, 19.6/6.8 cm/sec. Cephalic vein, mid bicep, 28.3 cm/sec. Cephalic vein, distal bicep, 15.4/7.5 cm/sec. Cephalic vein, distal bicep, 35.9 ml/min. Basilic vein, mid, 26/4.7 cm/sec. Basilic vein, mid, 62.3 ml/min. Basilic vein, distal, 21.1/5.4 cm/sec. Basilic vein, distal, 39.5 ml/min. Packaging Line Operator vein, 202.4/53.7 cm/sec. Packaging Line Operator vein, 435.3 ml/min. Coil noted in the right lateral brachial vein. VL/AV Fistula/Dialysis Graft Scan Interpretation Summary Right upper arm arteriovenous fistula patent with satisfactory flow volume over all/ However, there is preferential flow into deep system within two brachial veins Ordering Physician: Noble Zepeda Referring Physician: Pito Avery M.D. Performed By: Afia Tinsley RVT
== END | disposition home or self-care (01) ==
PROVIDERS: PCP Family Medicine; Referring Provider Surgery Trauma Surgery; Visit Provider Surgery Trauma Surgery
DX: N18.6 End stage renal disease (principal); Z99.2 Dependence on renal dialysis
CPT/HCPCS: 93990

== ENCOUNTER → 2023-05-17 | Outpatient (REF) | payer MEDICARE, SELFPAY ==
[2023-05-17 09:14] LABS: Anion Gap 4 (5-15); BUN 40 mg/dL (7-18); BUN/Creat Ratio 13.3 RATIO (10-20); Calcium,Total 8.9 mg/dL (8.5-10.1); Chloride 102 mmol/L (98-107); Creatinine, Serum 3.01 mg/dL (0.70-1.30); EST Glomerular Filtration Rate 21 mL/min (>60); Est Glom Filt Rate - Afr Amer 26 mL/min (>60); Glucose 178 mg/dL (74-106); Potassium 3.9 mmol/L (3.5-5.1); Sodium Level 140 mmol/L (136-145)
[2023-05-21 05:12] LABS: T4 Free Direct 1.69 ng/dL (0.76-1.46); Thyroid Stim Hormone (TSH) 5.16 uIU/mL (0.358-3.74)
== END ==
LOC: OLS.SW 05:00
PROVIDERS: PCP Family Medicine; Visit Provider Family Medicine
DX: E03.9 Hypothyroidism, unspecified (principal); N18.4 Chronic kidney disease, stage 4 (severe)
CPT/HCPCS: 36415; 80048; 84439; 84443

== ENCOUNTER → 2023-05-24 | Outpatient (REF) | payer MEDICARE, SELFPAY ==
[2023-05-24 10:26] LABS: Anion Gap 5 (5-15); BUN 45 mg/dL (7-18); BUN/Creat Ratio 15.7 RATIO (10-20); Calcium,Total 9.1 mg/dL (8.5-10.1); Chloride 102 mmol/L (98-107); Creatinine, Serum 2.86 mg/dL (0.70-1.30); EST Glomerular Filtration Rate 23 mL/min (>60); Est Glom Filt Rate - Afr Amer 27 mL/min (>60); Glucose 181 mg/dL (74-106); Potassium 3.9 mmol/L (3.5-5.1); Sodium Level 140 mmol/L (136-145)
== END ==
LOC: OLS.SW 05:00
PROVIDERS: PCP Family Medicine; Visit Provider Family Medicine
DX: D64.9 Anemia, unspecified (principal); N18.9 Chronic kidney disease, unspecified
CPT/HCPCS: 36415; 80048

== ENCOUNTER → 2023-05-31 05:00 | Outpatient (REF) | payer MEDICARE, SELFPAY ==
[2023-05-31 07:52] LABS: Anion Gap 4 (5-15); BUN 51 mg/dL (7-18); BUN/Creat Ratio 18.1 RATIO (10-20); Calcium,Total 8.5 mg/dL (8.5-10.1); Chloride 102 mmol/L (98-107); Creatinine, Serum 2.81 mg/dL (0.70-1.30); EST Glomerular Filtration Rate 23 mL/min (>60); Est Glom Filt Rate - Afr Amer 28 mL/min (>60); Glucose 217 mg/dL (74-106); Potassium 4.1 mmol/L (3.5-5.1); Sodium Level 138 mmol/L (136-145)
== END ==
LOC: OLS.SW 05:00
PROVIDERS: PCP Family Medicine; Visit Provider Family Medicine
DX: N18.4 Chronic kidney disease, stage 4 (severe) (principal)
CPT/HCPCS: 36415; 80048

== ENCOUNTER → 2023-06-07 | Outpatient (REF) | payer MEDICARE, MEDICAID, SELFPAY ==
[2023-06-07 10:03] LABS: Anion Gap 7 (5-15); BUN 46 mg/dL (7-18); BUN/Creat Ratio 15.4 RATIO (10-20); Calcium,Total 8.9 mg/dL (8.5-10.1); Chloride 103 mmol/L (98-107); Creatinine, Serum 2.98 mg/dL (0.70-1.30); EST Glomerular Filtration Rate 22 mL/min (>60); Est Glom Filt Rate - Afr Amer 26 mL/min (>60); Glucose 184 mg/dL (74-106); Sodium Level 140 mmol/L (136-145)
== END ==
LOC: OLS.SWAL 05:00
PROVIDERS: PCP Family Medicine; Visit Provider Internal Medicine
DX: N18.9 Chronic kidney disease, unspecified (principal)
CPT/HCPCS: 36415; 80048

== ENCOUNTER 2023-06-14 08:45 | Day surgery (SDC) | payer MEDICARE, MEDICAID, SELFPAY ==
[2023-06-13 08:27] VITALS: BMI 25.2
--- NOTE | 2023-06-14 14:22 | PCM.OPRPT ---
Report of Operation Date of Procedure: 06/14/23 Pre-Operative Diagnosis: ESRD, fistula not maturing Post-Operative Diagnosis: same Surgery/Procedure Performed:: fistulagram, coil embolization brachial vein Surgeon: Noble Zepeda Type of Anesthesia: Local and Sedation,Conscious Estimated Blood Loss (mL): 10 Description of Procedure: HPI: Patient is an 81-year-old male with a previous percutaneous endovascular fistula creation with failure to mature. He has a duplex study that revealed a majority of flow into the deep system with minimal cephalic vein fistulization. He is taken now for fistulogram with plans to further coil the brachial vein which had been partially coiled in the initial operation. Description of procedure: Upon obtaining informed consent and verification correct patient procedure site patient taken to the Railroad Signal Operator where he was positioned prepped and draped in usual fashion. Time was performed conscious sedation ministered with Versed and fentanyl. Ultrasound used to access the right ulnar artery in retrograde fashion with a microneedle wire. This was exchanged out for a micropuncture sheath through which injection angiography, fistulogram was performed which revealed dominant flow across the fistula creation into the brachial vein with minimal contrast filling of the cephalic vein. Neck skin overlying the brachial vein was anesthetized with 1% lidocaine and the vessel accessed in antegrade fashion with micropuncture needle wire. This then exchanged out for a 6 Niuean slender sheath which was advanced into position adjacent to the previously placed coils. Through the slender sheath an 014 wire was advanced traversing the coil was then into the venous system in the forearm. Intravascular sound was then advanced over the wire and recorded pullback performed of the brachial vein and the forearm superficial venous system. This revealed the size of the vessel as well as location of branches adjacent to the previously coiled segment. Next penumbra coils were brought in the field and prepped for minute fashion instructions with a initial Pod coil placed followed by 2 packing coils at the cephalad aspect of the previously coiled segment. Repeat angiography via the wrist confirmed better shunting of flow into the superficial system and filling of the cephalic vein however there were multiple branches from the cephalic vein that then collateralized to the deep system. Warner that these significantly hindered flow into the distal aspect of the cephalic vein. 1 of these branches was just distal to the antecubital crease and very superficial so skin overlying this was anesthetized and a small incision made with 11 blade. A hemostat was then used to encircle the vein and this was ligated with a silk tie. Repeat angiography confirmed better contrast filling of the cephalic vein however there is another sizable branch more distally as well as a more distal stenosis. We then advanced a wire via the ulnar artery puncture sheath and exchanged for a 5 Niuean halo sheath. Using a command 14 wire and an angled quick cross catheter we navigated into the cephalic vein and were able to initially traversed the cephalic vein however we entered into multiple small branches and were unable to navigate successfully across the cephalic vein. It was at this point we also noted a bicep hematoma from her brachial vein sheath which had been dislodged and is felt that no further efforts would be undertaken. The brachial sheath was fully withdrawn and manual pressure held after which the bicep hematoma appeared to be stable. The patient had no motor or sensory dysfunction in the hand and the majority of the hematoma was in the bicep muscle not within the brachial sheath. Next a radial band was applied to the ulnar access site and the sheath withdrawn. The patient was then taken the recovery room anticipated bedrest prior to discharge to home. Complications bicep hematoma
== END 2023-06-14 15:55 | disposition home or self-care (01) ==
PROVIDERS: PCP Family Medicine; Referring Provider Surgery Trauma Surgery; Visit Provider Surgery Trauma Surgery
DX: N18.6 End stage renal disease (principal); Z99.2 Dependence on renal dialysis; I50.9 Heart failure, unspecified; Z79.82 Long term (current) use of aspirin; Z79.01 Long term (current) use of anticoagulants; Z79.899 Other long term (current) drug therapy; Z99.81 Dependence on supplemental oxygen
CPT/HCPCS: 36415; 36901; 36909; 37252; 37253; 76937; 80053; 80061; 82306; 82607; 84443; 85025; 99152; 99153; C1753; C1887; C1894; J7040; Q9967; C1769

== ENCOUNTER → 2023-06-14 | Outpatient (REF) | payer MEDICARE, MEDICAID, SELFPAY ==
[2023-06-14 08:43] LABS: Absolute Neutrophil Count 5.8 X10^3/uL (2.0-7.7); Basophil# 0.09 X10^3/uL; Eosinophil# 0.54 X10^3/uL; Hemoglobin 9.4 g/dL (13.0-16.5); Lymphocyte % 16.5 % (19-41); Mean Corp Hgb Conc 29.4 g/dL (32-36); Mean Corpuscular Hgb 25.8 pg (27.0-32.0); Mean Corpuscular Volume 87.9 fL (80-94); Mean Platelet Vol. 10.3 fl (6.2-12.0); Monocyte% 12.1 % (0-10); NRBC Flagged by Analyzer 0 % (0-5); Platelet Count 246 K/mm3 (150-450); RBC Distribution Width SD 55.1 fl (35.1-43.9); Red Blood Count 3.64 M/mm3 (4.6-6.2); White Blood Count 9.1 K/mm3 (4.4-11.0)
[2023-06-14 09:00] LABS: Vitamin B12 501 pg/mL (211-911); Vitamin D,25 Hydroxy 52.7 ng/mL
[2023-06-14 09:08] LABS: ALB/GLOB Ratio 0.6 RATIO (0.9-2.4); AST(SGOT) 20 U/L (15-37); Alanine Aminotransfer ALT/SGPT 29 U/L (16-61); Alkaline Phosphatase 158 U/L (45-117); Anion Gap 6 (5-15); BUN 51 mg/dL (7-18); BUN/Creat Ratio 15.7 RATIO (10-20); Calcium,Total 9.3 mg/dL (8.5-10.1); Chloride 99 mmol/L (98-107); Cholesterol 147 mg/dL (200); Creatinine, Serum 3.24 mg/dL (0.70-1.30); EST Glomerular Filtration Rate 20 mL/min (>60); Est Glom Filt Rate - Afr Amer 24 mL/min (>60); Glucose 178 mg/dL (74-106); High Density Lipoprotein 44 mg/dL; Potassium 4.1 mmol/L (3.5-5.1); Sodium Level 138 mmol/L (136-145); Triglycerides 99 mg/dL; Very Low Density Lipoprotein 20 mg/dL (5-40)
== END ==
LOC: OLS.SWAL 05:00
PROVIDERS: PCP Family Medicine; Visit Provider Internal Medicine
DX: N17.9 Acute kidney failure, unspecified (principal); E55.9 Vitamin D deficiency, unspecified; E78.5 Hyperlipidemia, unspecified; I95.9 Hypotension, unspecified
CPT/HCPCS: 36415; 80053; 80061; 82306; 82607; 84443; 85025

== ENCOUNTER → 2023-06-21 | Outpatient (REF) | payer MEDICARE, MEDICAID, SELFPAY ==
[2023-06-21 08:56] LABS: Anion Gap 6 (5-15); BUN 39 mg/dL (7-18); BUN/Creat Ratio 14.1 RATIO (10-20); Calcium,Total 8.9 mg/dL (8.5-10.1); Chloride 101 mmol/L (98-107); Creatinine, Serum 2.76 mg/dL (0.70-1.30); EST Glomerular Filtration Rate 24 mL/min (>60); Est Glom Filt Rate - Afr Amer 29 mL/min (>60); Glucose 167 mg/dL (74-106); Potassium 4.1 mmol/L (3.5-5.1); Sodium Level 140 mmol/L (136-145)
== END ==
LOC: OLS.SWAL 05:00
PROVIDERS: PCP Family Medicine; Visit Provider Internal Medicine
DX: N18.4 Chronic kidney disease, stage 4 (severe) (principal)
CPT/HCPCS: 36415; 80048

== ENCOUNTER → 2023-06-25 | Outpatient (REF) | payer MEDICARE, MEDICAID, SELFPAY ==
[2023-06-25 08:45] LABS: Thyroid Stim Hormone (TSH) 2.92 uIU/mL (0.358-3.74)
== END ==
LOC: OLS.SWAL 04:00
PROVIDERS: PCP Family Medicine; Visit Provider Internal Medicine
DX: E11.9 Type 2 diabetes mellitus without complications (principal); E03.9 Hypothyroidism, unspecified
CPT/HCPCS: 36415; 83036; 84443

== ENCOUNTER → 2023-06-29 | Outpatient (REF) | payer MEDICARE, MEDICAID, SELFPAY ==
[2023-06-29 08:49] LABS: Anion Gap 6 (5-15); BUN 50 mg/dL (7-18); BUN/Creat Ratio 14.6 RATIO (10-20); Calcium,Total 9.2 mg/dL (8.5-10.1); Chloride 103 mmol/L (98-107); Creatinine, Serum 3.43 mg/dL (0.70-1.30); EST Glomerular Filtration Rate 18 mL/min (>60); Est Glom Filt Rate - Afr Amer 22 mL/min (>60); Glucose 240 mg/dL (74-106); Potassium 4.1 mmol/L (3.5-5.1); Sodium Level 138 mmol/L (136-145)
== END ==
LOC: OLS.SWAL 05:00
PROVIDERS: PCP Family Medicine; Visit Provider Internal Medicine
DX: N18.9 Chronic kidney disease, unspecified (principal); Z99.2 Dependence on renal dialysis
CPT/HCPCS: 36415; 80048

== ENCOUNTER → 2023-07-03 | Outpatient (CLI) | payer MEDICARE, MEDICAID, SELFPAY ==
--- NOTE | 2023-07-03 09:25 | AVDS_ITS ---
Reason For Study: Fistula stenosis RIGHT Brachial artery, mid, 188.4/52.7 cm/sec. Brachial artery, mid, 881.2 ml/min. Medial Brachial vein, 66.7/27 cm/sec. Medial Brachial vein, 520.9 ml/min. Lateral Brachial vein, 27.5/6.3 cm/sec. Lateral Brachial vein, 71.7 ml/min. Cephalic vein, mid bicep, 21.1/7.7 cm/sec. Cephalic vein, mid bicep, 49.4 cm/sec. Cephalic vein, distal bicep, 11.7 cm/sec. Cephalic vein, distal bicep, 9.5 ml/min. Thombus noted in the right cephalic vein distal bicep to antecube. Thrombus does not extend into or past chief gauger. Basilic vein, mid, 50.2/21.5 cm/sec. Basilic vein, mid, 207.5 ml/min. Basilic vein, distal, 236.3/18 cm/sec. Basilic vein, distal, 145.1 ml/min. Perinatal Educator vein, 151.8/45.6 cm/sec. Perinatal Educator vein, 284.3 ml/min. Coil noted in the right brachial vein. Preliminary report given to Christy DEL TORO. VL/AV Fistula/Dialysis Graft Scan Interpretation Summary Occlusion of right cephalic vein fistula Continued flow through chief gauger with dominant outflow via medial brachial vei n Ordering Physician: Noble Zepeda Referring Physician: Caden Avery Performed By: Afia Tinsley RVT
== END | disposition home or self-care (01) ==
LOC: CVS 09:24
PROVIDERS: PCP Family Medicine; Referring Provider Surgery Trauma Surgery; Visit Provider Surgery Trauma Surgery
DX: T82.858A Stenosis of other vascular prosthetic devices, implants and grafts, initial encounter (principal); Z98.890 Other specified postprocedural states
CPT/HCPCS: 93990

== ENCOUNTER 2023-07-09 12:01 | Emergency (ER) | payer MEDICARE, MEDICAID, SELFPAY ==
[2023-07-09] VITALS (14 sets, daily range): BP systolic 0–128; BP diastolic 0–45; PULSE 60–80; RESP 16–25; TEMP 35.9–36.3; O2SAT 79–97; BMI 32.9
--- NOTE | 2023-07-09 12:03 | NURSING ---
NO OLD EKGS
--- NOTE | 2023-07-09 12:10 | EX.ED.CRITCA ---
HPI History of Present Illness Chief Complaint: CPR Detail of Chief Complaint: CPR with return of spontaneous circulation Informant: EMS and other (Configuration Specialist contacted dialysis unit and asked questions that I needed answered) Onset/Context/Timing Onset: Today Context: Sudden Onset (EMS called at 1130) Timing: Waxes and wanes Quality: PEA Location: After 2 minutes patient had return of spontaneous circulation Current Severity: Severe Maximum Severity: Severe Worsened by: Unknown Relieved by: Treatment for PEA Narrative Narrative: Patient is an 83-year-old male with end-stage renal disease on hemodialysis who received a total of 8000 units of heparin. He was standing up to be weighed and vitals checked before discharge. He collapsed. He had no respiratory effort and no pulses. EMS was contacted. EMS arrived at 1137. Patient was noted to be in PEA. Algorithm for PEA was initiated. Patient had return of spontaneous circulation after 2 minutes of treatment. Patient has an Igel in place. GCS is 6T. There is an IO in the proximal right humerus. Staff was able to establish a peripheral IV left antecubital fossa. Prior similar symptoms: No Recent Illness/Hospitalization: No PFSH PFSH Medical History Anemia Arthritis Cardiology follow-up encounter CHF (congestive heart failure) CKD (chronic kidney disease), stage IV Dependence on renal dialysis Diabetes Dietary restriction Difficulty chewing Excessive bleeding Heartburn History of atrial fibrillation History of edema Hx of valvular heart disease Hyperlipemia Hypoxia Lives in detention Loss of hearing Muscle weakness (generalized) Non-smoker On home oxygen therapy Pacemaker Rheumatic mitral insufficiency Shortness of breath on exertion Syncope Thyroid disease Uses wheelchair Wears dentures Wears glasses Home Medications acetaminophen 325 mg capsule 650 mg PO Q4H PRN fever or pain 02/13/23 [History Last Taken Unknown] amiodarone 200 mg tablet 200 mg PO DAILY 02/13/23 [History Last Taken 04/23/23] apixaban 2.5 mg tablet (Eliquis) 2.5 mg PO Q12H 02/13/23 [History Last Taken 04/22/23] aspirin 81 mg chewable tablet 1 tab PO DAILY 02/13/23 [History Last Taken 04/23/23] atorvastatin 10 mg tablet 10 mg PO QHS 02/13/23 [History Last Taken Unknown] azelastine 137 mcg (0.1 %) nasal spray aerosol 2 spray intranasal Q12H PRN ALLERGIES 02/13/23 [History Last Taken Unknown] bumetanide 1 mg tablet 2 mg PO DINNER 02/13/23 [History Last Taken Unknown] fluticasone propionate 50 mcg/actuation nasal spray,suspension 2 spray intranasal Q12H PRN nasal congestion 02/13/23 [History Last Taken Unknown] magnesium oxide 400 mg (241.3 mg magnesium) tablet 400 mg PO DAILY 02/13/23 [History Last Taken Unknown] midodrine 10 mg tablet 10 mg PO BID 02/13/23 [History Last Taken 04/24/23] ondansetron 4 mg disintegrating tablet 4 mg PO Q6H PRN nausea and vomiting 02/13/23 [History Last Taken Unknown] vitamin B complex-vitamin C-folic acid 0.8 mg tablet (Renal Vitamin) 1 tab PO DAILY 02/13/23 [History Last Taken Unknown] levothyroxine 100 mcg tablet 100 mcg PO DAILY 07/09/23 [History Last Taken Unknown] Allergy/AdvReac Type Severity Reaction Status Date / Time No Known Allergies Allergy Verified 07/09/23 12:07 Family History unable to obtain Surgical History unable to obtain Social History Smoking Status: Never smoker ROS ROS ED Review of Systems ROS Unobtainable: due to mental status EXAM Physical Exam Const Vital Signs: 07/09/23 12:07 07/09/23 12:12 07/09/23 12:17 Temperature 96.6 F L Temperature Source Temporal Pulse Rate 63 Pulse Rate [4] Respiratory Rate 16 Respiratory Rate [4] Respiratory Effort Mechanically Ventilated Blood Pressure 90/37 L 53/33 L Blood Pressure [4] Blood Pressure Mean 54 39 Blood Pressure Source Blood Pressure Position Blood Pressure Location Pulse Ox 80 80 95 Oxygen Delivery Method Ambu-Bag Ambu-Bag Ambu-Bag Fraction of Inspired Oxygen (FIO2) 07/09/23 12:22 07/09/23 12:29 07/09/23 12:35 Temperature Temperature Source Pulse Rate 62 Pulse Rate [4] 60 Respiratory Rate 18 Respiratory Rate [4] 18 Respiratory Effort Agonal Blood Pressure 81/40 L Blood Pressure [4] 81/40 L Blood Pressure Mean 53 Blood Pressure Source Monitor Blood Pressure Position Blood Pressure Location Pulse Ox 95 Oxygen Delivery Method Ambu-Bag Ambu-Bag Fraction of Inspired Oxygen (FIO2) 07/09/23 12:48 07/09/23 13:01 07/09/23 12:45 Temperature 96.7 F L 97.3 F L Temperature Source Core Core Pulse Rate 60 80 68 Pulse Rate [4] Respiratory Rate 19 H 20 H 19 H Respiratory Rate [4] Respiratory Effort Blood Pressure 82/33 L 127/44 H Blood Pressure [4] Blood Pressure Mean 49 71 Blood Pressure Source Monitor Monitor Blood Pressure Position Supine Supine Blood Pressure Location Right Arm Pulse Ox 96 96 94 Oxygen Delivery Method Mechanical Ventilator Mechanical Ventilator Fraction of Inspired Oxygen (FIO2) 100 07/09/23 13:07 07/09/23 13:18 07/09/23 13:43 Temperature 97.2 F L Temperature Source Core Pulse Rate 62 62 Pulse Rate [4] Respiratory Rate 18 18 Respiratory Rate [4] Respiratory Effort Labored Blood Pressure 128/45 H 72/36 L Blood Pressure [4] Blood Pressure Mean 72 48 Blood Pressure Source Monitor Blood Pressure Position Semi-Fowlers Blood Pressure Location Left Arm Pulse Ox 97 92 Oxygen Delivery Method Mechanical Ventilator Mechanical Ventilator Fraction of Inspired Oxygen (FIO2) 07/09/23 14:01 07/09/23 14:06 07/09/23 14:10 Temperature 97.2 F L 97.1 F L 97.1 F L Temperature Source Core Core Core Pulse Rate 60 75 73 Pulse Rate [4] Respiratory Rate 20 H 20 H 18 Respiratory Rate [4] Respiratory Effort Blood Pressure 63/41 L 51/28 L 0/0 L Blood Pressure [4] Blood Pressure Mean 48 35 Blood Pressure Source Monitor Monitor Blood Pressure Position Semi-Fowlers Blood Pressure Location Left Arm Pulse Ox 91 89 88 Oxygen Delivery Method Mechanical Ventilator Mechanical Ventilator Mechanical Ventilator Fraction of Inspired Oxygen (FIO2) 07/09/23 14:08 Temperature Temperature Source Pulse Rate 76 Pulse Rate [4] Respiratory Rate 25 H Respiratory Rate [4] Respiratory Effort Blood Pressure Blood Pressure [4] Blood Pressure Mean Blood Pressure Source Blood Pressure Position Blood Pressure Location Pulse Ox 85 Oxygen Delivery Method Fraction of Inspired Oxygen (FIO2) 100 Positive well nourished, well developed and cachectic Constitutional Narrative: Patient has proptosis right eye. Pupils are pinpoint. Pupils are nonreactive. Patient has acrocyanosis upper and lower extremities. General Appearance ED: well developed, cachectic and pallor Nutritional Appearance: cachectic HEENT normocephalic and atraumatic Eyes Negative for PERRL or EOMs intact bilaterally General Eye ED: Yes pale conjunctiva; Negative for scleral icterus Resp Resp Narrative: Breath sounds noted with bagging patient. He has an Igel in place Cardio regular rate, regular rhythm, S1 normal heart sound, S2 normal heart sound and no murmurs GI non-distended and no masses Palpation: soft Extremity Extremity Narrative: No gross dramality. There is acrocyanosis. There is no clubbing. Neuro Neuro Narrative: GCS 6 T Psych Psych Narrative: Unknown but was Skin Skin Narrative: Patient has bruises noted that are old. General Skin Exam: pallor MDM MDM MDM Narrative Medical decision making narrative: With patient having PA need to consider hypovolemia, pulmonary embolus, intracranial bleed. If there is no evidence of intracranial bleed and unenhanced CT of the head will obtain CT of the chest. Also need to consider profound acidemia which would be unlikely since he completed dialysis. There is no report V. tach or torsades which would suggest or raise concern for hyperkalemia. Patient does have spontaneous respirations. He does gasp every 4 seconds. He does have a palpable radial pulse. At 1216 was informed by nurse that his blood pressure is low. Levophed drip was started. I was asked by the technical programs manager to look at his film. Patient is noted have a pneumothorax. There is crepitus on the right side consistent with fractured ribs. Suspect this is the cause of his pneumothorax since the central line was placed easily. Thoracostomy tube was placed on the right. This was performed without difficulty. Chest x-ray was obtained which reveals to be in proper position. The thoracostomy tube is in the thoracic cavity. Lab Data Attestation: I reviewed the patient's lab results. Lab results narrative: White count is elevated 15.4 thousand. There is mild anemia. First troponin is greater than 300. Lactate is 10.9. Liver enzymes are all elevated. AST and ALT are 2 77-80 respectively. Alkaline phosphatase elevated to 44. Suspect this is shock liver from patient arriving after resuscitation for PEA. Labs: Laboratory Results - last 24 hr 07/09/23 07/09/23 12:05 12:55 WBC 15.7 H RBC 4.40 L Hgb 12.2 L Hct 41.4 MCV 94.1 H MCH 27.7 MCHC 29.5 L RDW Std Deviation 71.7 H RDW Coeff of Lon 21.0 H Plt Count 192 MPV 9.4 Neut % (Auto) Not Reportable Absolute Neuts (auto) 7.4 Absolute Lymphs (auto) 6.40 H Total Counted 100 Neutrophils % (Manual) 45 L Band Neutrophils % 2 Lymphocytes % (Manual) 41 Monocytes % (Manual) 4 Eosinophils % (Manual) 3 Metamyelocytes % 4 H Myelocytes % 1 H Nucleated RBCs/100 WBC 2 Diff Path Review May foll Platelet Estimate ADEQUATE RBC Morphology N CHROM Anisocytosis 1+ Sodium 134 L Potassium 3.7 Chloride 98 Carbon Dioxide 23.0 Anion Gap 13 BUN 30 H Creatinine 2.38 H Estim Creat Clear Calc 21.59 Est GFR (MDRD) Af Amer 34 L Est GFR (MDRD) Non-Af 28 L BUN/Creatinine Ratio 12.6 Glucose 270 H Lactic Acid 10.9 H* Calcium 8.6 Total Bilirubin 0.60 AST 277 H ALT 280 H Alkaline Phosphatase 244 H Troponin I High Sens 328 H* Total Protein 8.6 H Albumin 3.1 L Globulin 5.5 H Albumin/Globulin Ratio 0.6 L ABG Data Attestation: I personally reviewed and interpreted this ABG as follows: Interpretation: 80 EG reveals a metabolic and respiratory acidosis. Patient was treated with bicarb for PEA because of presumption patient was acidotic and because of his MICHELLE. ABG results: ABG 07/09/23 12:40 Specimen Type ART Sample Site R Fem pH 7.02 L* Bicarbonate Actual 16.3 L Total CO2 18 Base Excess -15 L O2 Saturation 97 O2 % 100.0 ABG pCO2 63.3 H ABG pO2 127 H O2 Delivery Device Bagging Vent Mode Not entered Crit Call To/Read Back Yes Blood Gas Notified Whom zepeda Blood Gas Notified Time 12:42:08 Radiography Diagnostic Testing: Clinical Impression(s) from Imaging Studies Brain CT 07/09/23 12:22 IMPRESSION: Chronic involutional changes of the brain. Tiny lacuna is seen in the deep white matter of the right parietal lobe. Electronically Signed: Reese Hair MD at 12:39 EST , Chest CTA 07/09/23 12:22 IMPRESSION: No evidence of pulmonary embolism. Findings suggestive chronic scarring in both lungs. Left adrenal mass. Electronically Signed: Reese Hair MD at 12:50 EST , ADDENDUM: 07/09/23 1346 IMPRESSION: undefined Chest X-Ray 07/09/23 13:05 IMPRESSION: 5% right pneumothorax with evidence of diffuse increase interstitial markings worse in the right lung. All the support tubes are in good position. Electronically Signed: Reese Hair MD at 13:38 EST , Chest X-Ray 07/09/23 13:15 IMPRESSION: Status post small-caliber right chest tube placement as described. Stable examination. Electronically Signed: Reese Hair MD at 14:04 EST , CT was independent reviewed by me and reveals no evidence of intracranial bleed. Radiologist noted a tiny right parietal lacunar infarct. CTA revealed no evidence of pulmonary embolus. Rhythm Strip Rhythm Strip: Patient has not AV sequential pacemaker noted on the monitor. Rate is 64. Rate: 64 EKG Initial EKG: Attestation: I personally reviewed and interpreted this EKG as follows: Interpretation: Paced (AV sequential paced rhythm. Patient does have ST elevation in aVR and ST elevation in V1 which raises concern for triple-vessel disease. There is also an ossific ST-T wave changes with depression in his lateral leads.) Management Discussion w/another healthcare provider: Hospitalist (Hospitalist will be down to speak to son regarding cooling since it is recommended by the [place] [employer].) and Other (Charge nurse contacted dialysis center regarding heparinization, events that led to his collapse and symptoms.) Treatment and Re-Evaluation Narrative: I was informed that patient is oozing from areas IVs were placed and now has hemoptysis. Patient may have developed a coagulopathy will obtain PT PTT and if needed LDH and fibrin split products. I was informed by hospitalist patient's rhythm change. He had PEA again. CPR was initiated since son did not feel comfortable talking of the pain there is to home with home therapy. After discussion with family patient was pronounced at 1418. Procedures Intubations Intubation Method: orotracheal (Patient was easily orotracheal in bed using glide scope. Endotracheal tube was passed on first attempt. Breath sounds were noted bilaterally.) Intubation Verification: Positive color change Intubation Complications: no complications Other Procedures Procedure(s): Patient had a right subclavian line placed. This was easily placed on first attempt. Sterile conditions were used. Not everyone in the room was gown so line will need to be changed in 24 hours. Blood was aspirated from all 3 ports. Line was placed using Salinger technique. Right femoral artery was cannulated for ABG by me. Right thoracostomy tube for pneumothorax due to CPR Critical Care Time Critical Care Time: Yes Critical care time (excluding procedures): 75-104 minutes (76 which included history, physical, documentation, discussion with family regarding CODE STATUS on 3 separate occasions. Discussion with master electrician, discussion with hospitalist), Including time spent: (History, physical from outside source, interpretation laboratory results, documentation), Discussing w/Patient &/or Family/Orange Grower (Spoke with son. Patient is a full code. He has been aware of what prompted his dad to be brought here and his condition. He was informed that he is in critical condition.), Discussing w/Consultants, Arranging Admission or Transfer and Performing Direct Patient Care at Bedside (engineering operations leader for CODE BLUE/treatment PEA) Discharge Plan Triage Chief Complaint: CPR ED Provider: Tamir Zepeda Dx/Rx/DC Orders Clinical Impression: Cardiopulmonary arrest with successful resuscitation, Pacemaker, ESRD (end stage renal disease) on dialysis, Non-ST elevated myocardial infarction, Acute hypotension, Multiple fractures of ribs of right side, Pneumothorax on right, Acidosis, lactic, DNR (do not resuscitate) discussion, Advance directive indicates patient wish for full code resuscitation status Prescriptions: No Action acetaminophen 325 mg capsule 650 mg PO Q4H PRN (Reason: fever or pain) Rx Instructions: for pain amiodarone 200 mg tablet 200 mg PO DAILY Eliquis 2.5 mg tablet 2.5 mg PO Q12H Hold Instructions: Resume on 04/26/23. aspirin 81 mg tablet,chewable 1 tab PO DAILY Patient Comments: TAKE 1 TABLET BY MOUTH DAILY atorvastatin 10 mg tablet 10 mg PO QHS azelastine 137 mcg (0.1 %) aerosol,spray 2 spray intranasal Q12H PRN (Reason: ALLERGIES) bumetanide 1 mg tablet 2 mg PO DINNER fluticasone propionate 50 mcg/actuation spray,suspension 2 spray intranasal Q12H PRN (Reason: nasal congestion) magnesium oxide 400 mg (241.3 mg magnesium) tablet 400 mg PO DAILY Patient Comments: TAKE 1 TABLET BY MOUTH TWICE A DAY midodrine 10 mg tablet 10 mg PO BID Rx Instructions: give for hypotention, hold for SBP>90 or Diastolic >60 ondansetron 4 mg tablet,disintegrating 4 mg PO Q6H PRN (Reason: nausea and vomiting) Renal Vitamin 0.8 mg tablet 1 tab PO DAILY levothyroxine 100 mcg tablet 100 mcg PO DAILY Primary Care Provider: Caden Avery Referrals: Caden Avery MD [Primary Care Provider] - Disposition Disposition:
[2023-07-09] MEDS: 0.9% Normal Saline (1000mL) 1,000 ML 999 ML IV (12:15)
--- NOTE | 2023-07-09 12:20 | ED.RN ---
called pharmacy for levophed gtt
--- NOTE | 2023-07-09 12:22 | CT_ITS ---
STUDY: CT BRAIN WITHOUT CONTRAST REASON FOR EXAM: Male, 83 years old. cpr RADIATION DOSAGE (If Supplied By Facility): CTDIvol = ( 44.99 ) mGy, DLP = ( 897.35 ) mGycm TECHNIQUE: Transaxial CT imaging of the brain was performed without administration of intravenous contrast material. Individualized dose optimization techniques were used for this CT. COMPARISON: No relevant priors. FINDINGS: Normal soft tissue structures. Normal calvarium. There is mild cerebral atrophy with widening of the extra-axial spaces and ventricular dilatation. Tiny lacuna is seen in the deep white matter of the right parietal lobe. Normal basal ganglia and thalami. Normal brainstem. Normal cerebellum. There is no intracranial hemorrhage. There are no findings of an acute ischemic infarction. Atherosclerotic calcific plaques of the cavernous portions of the internal carotid arteries and vertebral arteries bilaterally. Normal visualized paranasal sinuses. CT/Brain/Head without Contrast IMPRESSION: Chronic involutional changes of the brain. Tiny lacuna is seen in the deep white matter of the right parietal lobe. Electronically Signed: Reese Hair MD at 12:39 EST ,
--- NOTE | 2023-07-09 12:22 | CT_ITS ---
STUDY: CTA CHEST REASON FOR EXAM: Male, 83 years old. High probability PE RADIATION DOSAGE (If Supplied By Facility): CTDIvol = ( 26.64 ) mGy, DLP = ( 537.33 ) mGycm TECHNIQUE: The examination was performed with the intravenous administration of IV 100mL Isovue-370. Post-processing of the angiographic images was performed, with multiplanar reformation and 3D reconstruction. Individualized dose optimization techniques were used for this CT. COMPARISON: None. FINDINGS: An endotracheal tube is seen. An orogastric tube is also seen within the esophagus and stomach. Normal enhancement of the main pulmonary artery and right and left pulmonary arteries. Normal enhancement of the bilateral peripheral pulmonary arteries. There is no demonstrated pulmonary embolism. There is atherosclerotic calcification of the aortic arch with tortuosity. There is no demonstrated aortic dissection. Aortic valve replacement is seen. There are calcifications of the coronary arteries. A dual-chamber pacemaker is visualized. Normal mediastinum. Normal hilar regions. Normal visualized trachea and bronchi. The lungs are well expanded. Increased interstitial pattern in both lung bases as well as the right middle lobe and lingular segment of the left upper lobe suggestive of the interstitial scarring. Normal pleura. Normal chest wall structures. There are degenerative changes of thoracic spine. There is a 3.3 cm x 2.1 cm soft tissue nodule in the left adrenal gland. A neoplastic process should be ruled out. Preferential enhancement of the posterior aspect of the right lobe of the liver most likely secondary to venous congestion. CT/CTA Chest W/WO Contrast IMPRESSION: No evidence of pulmonary embolism. Findings suggestive chronic scarring in both lungs. Left adrenal mass. Electronically Signed: Reese Hair MD at 12:50 EST ,
[2023-07-09] MEDS: Norepinephrine 8 MG in 0.9% Normal Saline (250mL Bag) 242 ML 9.4 MG CONT INF (12:28)
--- NOTE | 2023-07-09 12:30 | NURSING ---
CODE BLUE CALLED
[2023-07-09 12:39] LABS: Hematocrit 41.4 % (40-54); Hemoglobin 12.2 g/dL (13.0-16.5); Mean Corp Hgb Conc 29.5 g/dL (32-36); Mean Corpuscular Hgb 27.7 pg (27.0-32.0); Mean Corpuscular Volume 94.1 fL (80-94); Mean Platelet Vol. 9.4 fl (6.2-12.0); POSITIVE COUNT YES; POSITIVE DIFFERENTIAL YES; POSITIVE MORPHOLOGY YES; Platelet Count 192 K/mm3 (150-450); RBC Distribution Width SD 71.7 fl (35.1-43.9)
[2023-07-09 12:40] LABS: Differential Indicated MANUAL DIFF
[2023-07-09 12:45] LABS: Base Excess -15 mmol/L (-2 to +2); Bicarbonate 16.3 mmol/L (22-26); Blood Gas Specimen Type ART; Mode Not entered; O2 Delivery Device Bagging; PO2 127 mmHG (75-100); SITE R Fem; SO2 97 % (95-99); Total Carbon Dioxide 18 mmol/L; pCO2 63.3 mmHg (35-45); pH 7.02 (7.35-7.45)
--- NOTE | 2023-07-09 12:45 | ED.RN ---
spoke with [facility] to Elena for update. Nursing Master Of Ceremonies calling son, Sukhjinder.
[2023-07-09] MEDS: Sodium Bicarbonate 8.4% 50 ML Syringe 50 MEQ IV (12:51)
[2023-07-09] MEDS: Calcium Chloride 1 GM/10 ML Syringe IVP (12:53)
[2023-07-09 13:04] LABS: ALB/GLOB Ratio 0.6 RATIO (0.9-2.4); AST(SGOT) 277 U/L (15-37); Alanine Aminotransfer ALT/SGPT 280 U/L (16-61); Albumin, Serum 3.1 g/dL (3.2-5.0); Alkaline Phosphatase 244 U/L (45-117); Anion Gap 13 (5-15); BUN 30 mg/dL (7-18); BUN/Creat Ratio 12.6 RATIO (10-20); Calcium,Total 8.6 mg/dL (8.5-10.1); Chloride 98 mmol/L (98-107); Creatinine, Serum 2.38 mg/dL (0.70-1.30); EST Glomerular Filtration Rate 28 mL/min (>60); Est Glom Filt Rate - Afr Amer 34 mL/min (>60); Estimated Creatinine Clearance 21.59 ml/min; Globulin 5.5 g/dL (2.2-4.2); Glucose 270 mg/dL (74-106); Potassium 3.7 mmol/L (3.5-5.1); Protein, Total 8.6 g/dL (6.4-8.2); Sodium Level 134 mmol/L (136-145); Troponin-I HS 328 pg/mL (3.0-78.0)
--- NOTE | 2023-07-09 13:05 | RAD_ITS ---
STUDY: X-RAY CHEST REASON FOR EXAM: Male, 83 years old. Status post CPR. TECHNIQUE: Single AP portable view of the chest. COMPARISON: None. FINDINGS: An endotracheal tube is seen with the tip at 2.5 cm proximal to the stephane. An oral gastric tube is seen with the tip below the left hemidiaphragm. A left-sided double catheter is seen with the tip at the junction of the superior vena cava and right atrium. A right-sided central venous catheter has been placed with the tip at the junction of the superior vena cava and right atrium. 5% right-sided pneumothorax. Diffuse increased interstitial markings in both lungs worse on the right side with areas of confluence. A left-sided dual-chamber pacemaker is seen. Normal mediastinum and eze. Normal visualized pulmonary arteries. There is atherosclerotic calcification of the aortic arch with tortuosity. There are diffuse degenerative changes of the visualized thoracic spine. Nondisplaced fractures in the right hemithorax. There is no demonstrated abnormality of the visualized soft tissue structures of the upper abdomen. RAD/CXR for Line Placement IMPRESSION: 5% right pneumothorax with evidence of diffuse increase interstitial markings worse in the right lung. All the support tubes are in good position. Electronically Signed: Reese Hair MD at 13:38 EST ,
[2023-07-09 13:12] LABS: White Blood Count 15.7 K/mm3 (4.4-11.0)
--- NOTE | 2023-07-09 13:15 | RAD_ITS ---
STUDY: X-RAY CHEST REASON FOR EXAM: Male, 83 years old. Chest tube TECHNIQUE: Single AP portable view of the chest. COMPARISON: Comparison is made with prior study done earlier today at 1:05 PM. FINDINGS: A small caliber right-sided chest tube has been placed with the tip in the upper lateral aspect of the right hemithorax. Stable right pneumothorax. The lungs are unchanged as well. RAD/Chest 1 View (Portable) IMPRESSION: Status post small-caliber right chest tube placement as described. Stable examination. Electronically Signed: Reese Hair MD at 14:04 EST ,
--- NOTE | 2023-07-09 13:17 | ED.RN ---
pigtail chest tube inserted by Dr Murray.
[2023-07-09 13:26] LABS: Eosinophil 3 % (0-5); Lymphocyte 41 % (19-41); Metamyelocyte 4 % (0-1); Monocyte 4 % (0-10); Myelocyte 1 % (0-0); Neutrophil-Band 2 % (0-5); Neutrophil-Segmented 45 % (47-70); Nucleated Red Bld Cells,Manual 2 % (0-5); Total Cells Counted 100 (MANUAL DIFF)
[2023-07-09 13:27] LABS: Anisocytosis 1+; Platelet Estimate ADEQUATE (ADEQ); Red Cell Morphology N CHROM NORMAL (NORM C&C)
[2023-07-09 13:28] LABS: Lactic Acid 10.9 mmol/L (0.4-1.9)
[2023-07-09 13:29] LABS: Absolute Neutrophil Count 7.4 X10^3/uL (2.0-7.7)
--- NOTE | 2023-07-09 13:37 | ED.RN ---
son at bedside and states patient does wish to be FULL CODE.
[2023-07-09] MEDS: fentaNYL 100 MCG/2 ML Ampul 50 MCG IV (13:40)
[2023-07-09] MEDS: fentaNYL drip 100 ML 5 MCG CONT INF (13:52)
--- NOTE | 2023-07-09 13:52 | PCM.HP.STD ---
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 Diabetes Dietary restriction Difficulty chewing Excessive bleeding Heartburn History of atrial fibrillation History of edema Hx of valvular heart disease Hyperlipemia Hypoxia Lives in shelter Loss of hearing Muscle weakness (generalized) Non-smoker On home oxygen therapy Pacemaker Rheumatic mitral insufficiency Shortness of breath on exertion Syncope Thyroid disease Uses wheelchair Wears dentures Wears glasses Home Medications acetaminophen 325 mg capsule 650 mg PO Q4H PRN fever or pain 02/13/23 [History Last Taken Unknown] amiodarone 200 mg tablet 200 mg PO DAILY 02/13/23 [History Last Taken 04/23/23] apixaban 2.5 mg tablet (Eliquis) 2.5 mg PO Q12H 02/13/23 [History Last Taken 04/22/23] aspirin 81 mg chewable tablet 1 tab PO DAILY 02/13/23 [History Last Taken 04/23/23] atorvastatin 10 mg tablet 10 mg PO QHS 02/13/23 [History Last Taken Unknown] azelastine 137 mcg (0.1 %) nasal spray aerosol 2 spray intranasal Q12H PRN ALLERGIES 02/13/23 [History Last Taken Unknown] bumetanide 1 mg tablet 2 mg PO DINNER 02/13/23 [History Last Taken Unknown] fluticasone propionate 50 mcg/actuation nasal spray,suspension 2 spray intranasal Q12H PRN nasal congestion 02/13/23 [History Last Taken Unknown] magnesium oxide 400 mg (241.3 mg magnesium) tablet 400 mg PO DAILY 02/13/23 [History Last Taken Unknown] midodrine 10 mg tablet 10 mg PO BID 02/13/23 [History Last Taken 04/24/23] ondansetron 4 mg disintegrating tablet 4 mg PO Q6H PRN nausea and vomiting 02/13/23 [History Last Taken Unknown] vitamin B complex-vitamin C-folic acid 0.8 mg tablet (Renal Vitamin) 1 tab PO DAILY 02/13/23 [History Last Taken Unknown] levothyroxine 100 mcg tablet 100 mcg PO DAILY 07/09/23 [History Last Taken Unknown] Allergy/AdvReac Type Severity Reaction Status Date / Time No Known Allergies Allergy Verified 07/09/23 12:07 Family History unable to obtain unable to obtain Surgical History unable to obtain unable to obtain Social History Smoking Status: Never smoker ROS Review of Systems ROS Unobtainable: due to endotracheal tube Vital Signs Vital Signs Vital Signs: 07/09/23 12:07 07/09/23 12:12 07/09/23 12:17 Temperature 96.6 F L Temperature Source Temporal Pulse Rate 63 Pulse Rate [4] Respiratory Rate 16 Respiratory Rate [4] Respiratory Effort Mechanically Ventilated Blood Pressure 90/37 L 53/33 L Blood Pressure [4] Blood Pressure Mean 54 39 Blood Pressure Source Blood Pressure Position Blood Pressure Location Pulse Ox 80 80 95 Oxygen Delivery Method Ambu-Bag Ambu-Bag Ambu-Bag Fraction of Inspired Oxygen (FIO2) 07/09/23 12:22 07/09/23 12:29 07/09/23 12:35 Temperature Temperature Source Pulse Rate 62 Pulse Rate [4] 60 Respiratory Rate 18 Respiratory Rate [4] 18 Respiratory Effort Agonal Blood Pressure 81/40 L Blood Pressure [4] 81/40 L Blood Pressure Mean 53 Blood Pressure Source Monitor Blood Pressure Position Blood Pressure Location Pulse Ox 95 Oxygen Delivery Method Ambu-Bag Ambu-Bag Fraction of Inspired Oxygen (FIO2) 07/09/23 12:48 07/09/23 13:01 07/09/23 12:45 Temperature 96.7 F L 97.3 F L Temperature Source Core Core Pulse Rate 60 80 68 Pulse Rate [4] Respiratory Rate 19 H 20 H 19 H Respiratory Rate [4] Respiratory Effort Blood Pressure 82/33 L 127/44 H Blood Pressure [4] Blood Pressure Mean 49 71 Blood Pressure Source Monitor Monitor Blood Pressure Position Supine Supine Blood Pressure Location Right Arm Pulse Ox 96 96 94 Oxygen Delivery Method Mechanical Ventilator Mechanical Ventilator Fraction of Inspired Oxygen (FIO2) 100 07/09/23 13:07 07/09/23 13:18 07/09/23 13:43 Temperature 97.2 F L Temperature Source Core Pulse Rate 62 62 Pulse Rate [4] Respiratory Rate 18 18 Respiratory Rate [4] Respiratory Effort Labored Blood Pressure 128/45 H 72/36 L Blood Pressure [4] Blood Pressure Mean 72 48 Blood Pressure Source Monitor Blood Pressure Position Semi-Fowlers Blood Pressure Location Left Arm Pulse Ox 97 92 Oxygen Delivery Method Mechanical Ventilator Mechanical Ventilator Fraction of Inspired Oxygen (FIO2) Weight Weight: 204 lb Body Mass Index (BMI) 32.9 Physical Exam Const General Appearance: intubated and patient mechanically ventilated HEENT normocephalic Eyes PERRL and conjunctivae normal Neck supple and no JVD Resp normal respiratory effort, no retractions and no use of accessory muscles Auscultation: wheezes; Negative for crackles, rales or rhonchi Cardio regular rate, regular rhythm, S1 normal heart sound, S2 normal heart sound and no murmurs GI soft to palpation and non-distended; Negative for hepatosplenomegaly Extremity no clubbing, cyanosis or edema Skin no rashes or lesions noted Neuro Sensorium / Orientation: sedated on vent Psych Appearance: intubated Results Lab / Micro Data 07/09/23 12:05 07/09/23 12:05 Labs: Laboratory Results - last 24 hr 07/09/23 12:05: WBC 15.7 H, RBC 4.40 L, Hgb 12.2 L, Hct 41.4, MCV 94.1 H, MCH 27.7, MCHC 29.5 L, RDW Std Deviation 71.7 H, RDW Coeff of Lon 21.0 H, Plt Count 192, MPV 9.4, Neut % (Auto) Not Reportable, Absolute Neuts (auto) 7.4, Absolute Lymphs (auto) 6.40 H, Total Counted 100, Neutrophils % (Manual) 45 L, Band Neutrophils % 2, Lymphocytes % (Manual) 41, Monocytes % (Manual) 4, Eosinophils % (Manual) 3, Metamyelocytes % 4 H, Myelocytes % 1 H, Nucleated RBCs/100 WBC 2, Diff Path Review December foll, Platelet Estimate ADEQUATE, RBC Morphology N CHROM, Anisocytosis 1+, Sodium 134 L, Potassium 3.7, Chloride 98, Carbon Dioxide 23.0, Anion Gap 13, BUN 30 H, Creatinine 2.38 H, Estim Creat Clear Calc 21.59, Est GFR (MDRD) Af Amer 34 L, Est GFR (MDRD) Non-Af 28 L, BUN/Creatinine Ratio 12.6, Glucose 270 H, Calcium 8.6, Total Bilirubin 0.60, AST 277 H, ALT 280 H, Alkaline Phosphatase 244 H, Troponin I High Sens 328 H*, Total Protein 8.6 H, Albumin 3.1 L, Globulin 5.5 H, Albumin/Globulin Ratio 0.6 L 07/09/23 12:55: Lactic Acid 10.9 H* ABG Data ABG results: ABG 07/09/23 12:40 Specimen Type ART Sample Site R Fem pH 7.02 L* Bicarbonate Actual 16.3 L Total CO2 18 Base Excess -15 L O2 Saturation 97 O2 % 100.0 ABG pCO2 63.3 H ABG pO2 127 H O2 Delivery Device Bagging Vent Mode Not entered Crit Call To/Read Back Yes Blood Gas Notified Whom zepeda Blood Gas Notified Time 12:42:08 Rhythm Strip Rhythm Strip: Patient has not AV sequential pacemaker noted on the monitor. Rate is 64. Rate: 64 Imagaing Radiology Impression Brain CT 07/09/23 12:22 IMPRESSION: Chronic involutional changes of the brain. Tiny lacuna is seen in the deep white matter of the right parietal lobe. Electronically Signed: Reese Hair MD at 12:39 EST , Chest CTA 07/09/23 12:22 IMPRESSION: No evidence of pulmonary embolism. Findings suggestive chronic scarring in both lungs. Left adrenal mass. Electronically Signed: Reese Hair MD at 12:50 EST , ADDENDUM: 07/09/23 1346 IMPRESSION: undefined Chest X-Ray 07/09/23 13:05 IMPRESSION: 5% right pneumothorax with evidence of diffuse increase interstitial markings worse in the right lung. All the support tubes are in good position. Electronically Signed: Reese Hair MD at 13:38 EST ,
--- NOTE | 2023-07-09 14:03 | ED.RN ---
pt has new fistula to right arm that has not been used so far per son. has dialysis cath to left chest.
--- NOTE | 2023-07-09 14:17 | NURSING ---
CODE BLUE CALLED
[2023-07-09 14:26] LABS: International Normalized Ratio 2.3; Partial Thromboplast Time 44.3 Seconds (24.1-36.2); Prothrombin Time (Protime)PT. 25.9 SECONDS (11.7-14.9)
--- NOTE | 2023-07-09 14:48 | CHAPLAIN ---
Type of Pastoral Visit ___ Initial Visit ___ Follow-up Visit ___ On-call Visit ___ General Patient Visit ___ Spiritual Assessment ___ Family Conference ___ Bereavement ___ Rapid Response _x__ Code Blue ___ Other (describe below) Pastoral Care Referral From ___ Patient ___ Family ___ Nurse ___ Physician ___ Supervisor [place] ___ Equipment Hire Manager _x__ Other (describe below) Sacrament/Intervention _x__ Active listening ___ Anointing ___ Holiness ___ Bereavement ___ Communion _x__ Avani exploration ___ _x__ Life review _x__ Prayer ___ Reconciliation ___ Sacrament of Sick _x__ Supportive presence ___ Wedding ___ Other (describe below) Pastoral Comments responded to code blue; no family member was present at the time but learned that a son would be coming; waited for the son and met with him while team was working on the patient; offered presence and support to the son and was communicating with medical team and son until son was able to talk with the DR and go into the room; patient was intubated and alive but unresponsive; continued to support son and be present hearing about family and the pt's life in the ECF and work; later was called back to this room as the patient coded and CPR was discontinued per family; gave presence and prayer at bedside to son; other son will not be coming to the hospital; time to listen to more about the patient and sympathy expressed; reviewed questions that son presented along with the RN about what is next
--- NOTE | 2023-07-09 14:59 | ED.RN ---
TOTAL VOLUME NS 1L LEVOPHED 58.6 ML FENTANYL 2.33 ML
[2023-07-09 16:58] LABS: Reflex Lactate? Y
[2023-07-10 14:30] LABS: Pathologist Review Reviewed
== END 2023-07-09 14:18 ==
PROVIDERS: Emergency Provider Emergency Medicine; PCP Family Medicine; Visit Provider Emergency Medicine
DX: I46.9 Cardiac arrest, cause unspecified (principal); Z99.2 Dependence on renal dialysis; I50.9 Heart failure, unspecified; E11.22 Type 2 diabetes mellitus with diabetic chronic kidney disease; N18.6 End stage renal disease; I21.4 Non-ST elevation (NSTEMI) myocardial infarction; S27.0XXA Traumatic pneumothorax, initial encounter; S22.41XA Multiple fractures of ribs, right side, initial encounter for closed fracture; E78.5 Hyperlipidemia, unspecified; E87.20 Acidosis, unspecified; I95.9 Hypotension, unspecified; Z79.82 Long term (current) use of aspirin; Z79.01 Long term (current) use of anticoagulants; Z79.899 Other long term (current) drug therapy; Z99.81 Dependence on supplemental oxygen; Z95.0 Presence of cardiac pacemaker; X58.XXXA Exposure to other specified factors, initial encounter
CPT/HCPCS: 31500; 31720; 32551; 36556; 51702; 70450; 71045; 71275; 80053; 82803; 83605; 84484; 85025; 85610; 85730; 87070; 87205; 92950; 93005; 94002; 96374; 96375; 99285; J7030; J7050; Q9967; A4216; J3490